=== PATIENT | male | born 1980 | race Caucasian/White ===

== ENCOUNTER → 2018-04-21 11:28 | Outpatient (CLI) | payer BC, SELFPAY ==
[2018-04-21 13:25] LABS: Abs Immature Grans 0.01 k/cumm (0.0-0.09); Absolute Basophil Count 0.02 k/cumm (0.0-0.2); Absolute Eosinophil Count 0.38 k/cumm (0.0-0.7); Absolute Lymphocyte Count 1.66 k/cumm (1.2-3.4); Absolute Monocyte Count 0.65 k/cumm (0.11-0.7); Absolute Neutrophil Count 3.64 k/cumm (1.2-6.7); Basophils % 0.3; HGB 17.3 g/dL (13.5-17.5); Immature Grans % 0.2; Lymphocytes % 26.1; Mean Corp. HGB Concentration 34.6 g/dL (32.0-36.0); Mean Corpuscular Hemoglobin 30.8 pg (27.0-33.0); Mean Platelet Volume 9.8 fL (8.0-11.0); Monocytes % 10.2; Neutrophils % 57.2; Platelet Count 325 x1000/uL (130-400); RBC 5.62 m/cumm (4.50-6.00); RBC Distribution Width 12.7 % (11.8-14.1); White Blood Cell Count 6.36 k/cumm (4.4-10.8)
[2018-04-21 13:34] LABS: ALT 48 U/L (12-78); AST 27 U/L (15-37); Albumin 4.3 g/dL (3.4-5.0); Alkaline Phosphatase 80 U/L (46-116); Anion Gap 8.1 mmol/L (3-11); BUN 16 mg/dL (7-18); Bilirubin, Total 0.8 mg/dL (0.2-1.0); CO2 27.9 mmol/L (21.0-32.0); CREATININE 1.04 mg/dL (0.70-1.30); Calcium 9.5 mg/dL (8.5-10.1); Chloride 103 mmol/L (98-107); Cholesterol 192 mg/dL (50-200); Glucose 93 mg/dL (70-100); HDL Cholesterol 45 mg/dL (40-60); LDL CHOLESTEROL 128 mg/dL (<100); Potassium 4.7 mmol/L (3.5-5.1); Sodium 139 mmol/L (136-145); Total Protein 7.5 g/dL (6.4-8.2); Triglyceride 146 mg/dL (30-150)
[2018-04-21 14:30] LABS: ESR 3 MM/HR (0-15)
[2018-04-21 21:07] LABS: CRP, High Sensitivity 0.75 mg/L
== END ==
PROVIDERS: Visit Provider Nurse Practitioner Family
DX: E78.5 Hyperlipidemia, unspecified (principal); H34.231 Retinal artery branch occlusion, right eye
CPT/HCPCS: 36415; 80053; 80061; 83721; 85652; 86141; 85025; 85610; 85730

== ENCOUNTER → 2018-04-27 01:01 | Outpatient (CLI) | payer BC, SELFPAY ==
--- NOTE | 2018-04-27 14:18 | DI.REPORT_ITS ---
SYMPTOM/DIAGNOSIS: BRANCH RETINAL ARTERY OCCLUSION, RT EYE h 34.231 BILATERAL DUPLEX CAROTID ULTRASOUND: 04/27 Duplex evaluation of the carotid circulation was performed according to the usual protocol. There is little if any visible atheromatous plaque in the carotid circulation. There is bilateral antegrade vertebral flow. There is flow velocity elevation in proximal right internal carotid artery consistent with 50-60% luminal diameter stenosis. No other significant flow velocity elevation seen. CONCLUSION: Findings consistent with 50-60% luminal diameter stenosis, proximal right internal carotid artery. I would note that on color Doppler evaluation, I did not see a significant obstruction to ICA flow at this site.
== END ==
PROVIDERS: Visit Provider Nurse Practitioner Family
DX: H34.231 Retinal artery branch occlusion, right eye (principal); I65.21 Occlusion and stenosis of right carotid artery
CPT/HCPCS: 93880

== ENCOUNTER → 2018-04-29 03:12 | Outpatient (CLI) | payer BC, SELFPAY ==
--- NOTE | 2018-04-29 13:03 | DI.REPORT_ITS ---
SYMPTOMS/DIAGNOSIS: BRANCH RETINAL ARTERY OCCLUSION OF RIGHT EYE, R34.231 MRI OF THE BRAIN: There are no prior comparison exams. T2 sagittal, T1, T2, FLAIR, diffusion and gradient-echo axial and post gadolinium T1 axial and coronal sequences were performed. No intracranial hemorrhage, mass or infarct is seen. There are no abnormal high signal lesions in the white matter. The ventricles are normal in size. The vascular flow voids appear intact. There are no abnormal areas of enhancement. There is mild mucosal thickening of the sinuses. The mastoid air cells appear clear. The orbits are unremarkable. IMPRESSION: Mild sinus disease, otherwise negative. MRA OF THE [place]: A 3D [id number] study was performed. There is no evidence of occlusion, significant stenosis or dissection. There is no vascular irregularity or evidence of an aneurysm. IMPRESSION: Negative MRA of the [place].
[2018-04-29] MEDS: Gadoterate meglumine 20 ML VIAL 16 ML IVP (14:00)
== END ==
PROVIDERS: Visit Provider Nurse Practitioner Family
DX: H34.231 Retinal artery branch occlusion, right eye (principal); J32.9 Chronic sinusitis, unspecified
CPT/HCPCS: 70544; 70553

== ENCOUNTER 2018-09-09 12:08 | Outpatient (REF) | payer BC, SELFPAY ==
[2018-09-13 14:00] LABS: Chlamydia Result Negative; GC Result Negative; Specimen Description URINE
== END 2018-09-09 12:28 ==
LOC: LBN 12:08
PROVIDERS: Visit Provider Family Medicine
DX: Z02.0 Encounter for examination for admission to educational institution (principal)
CPT/HCPCS: 87491; 87591

== ENCOUNTER 2020-06-11 04:25 | Outpatient (CLI) | payer BC, SELFPAY ==
[2020-06-11 10:35] LABS: Hemoglobin A1C 5.2 % (<5.7)
[2020-06-11 11:14] LABS: ALT 67 U/L (16-63); AST 30 U/L (15-37); Albumin 4.3 g/dL (3.4-5.0); Alkaline Phosphatase 67 U/L (46-116); Anion Gap 5.2 mmol/L (3-11); BUN 19 mg/dL (7-18); Bilirubin, Total 0.7 mg/dL (0.2-1.0); CO2 29.8 mmol/L (21.0-32.0); CREATININE 1.04 mg/dL (0.70-1.30); Calcium 9.4 mg/dL (8.5-10.1); Calculated LDL 92 mg/dL (<100); Chloride 103 mmol/L (98-107); Cholesterol 145 mg/dL (<200); Glucose 89 mg/dL (74-106); HDL Cholesterol 37 mg/dL (40-60); Sodium 138 mmol/L (136-145); Total Protein 7.4 g/dL (6.4-8.2); Triglyceride 81 mg/dL (<150)
== END 2020-06-11 04:45 ==
PROVIDERS: PCP Nurse Practitioner Family; Visit Provider Nurse Practitioner Family
DX: E78.5 Hyperlipidemia, unspecified (principal)
CPT/HCPCS: 36415; 80053; 80061; 83036

== ENCOUNTER 2020-11-15 15:58 | Outpatient (REF) | payer BC, SELFPAY ==
[2020-11-15 20:04] LABS: Bilirubin Negative (Negative); Blood Negative (Negative); Clarity Clear (Clear); Glucose Negative (Negative); Ketones Negative (Negative); Leukocyte Esterase Negative (Negative); Nitrite Negative (Negative); Specific Gravity 1.025 (1.005-1.025); Urobilinogen 0.2 EU/dL (Up TO 0.2); pH 7.5 (5-8)
== END 2020-11-15 15:59 | disposition home or self-care (01) ==
LOC: LBN 15:58
PROVIDERS: PCP Nurse Practitioner Family; Visit Provider Nurse Practitioner Family
DX: M54.89 Other dorsalgia (principal)
CPT/HCPCS: 81003

== ENCOUNTER 2020-11-26 01:13 | Outpatient (CLI) | payer BC, SELFPAY ==
--- NOTE | 2020-11-26 06:30 | DI.US_ITS ---
EXAM: US ABDOMEN RENAL CLINICAL HISTORY: Left sided mid back pain with radiation to LUQ,gb pain and disease,K82.9 TECHNIQUE: Ultrasound performed using standard protocol. COMPARISON: US CAROTID ULTRASOUND from 04/27/2018 FINDINGS: Renal ultrasound was performed according to the usual protocol. The kidneys are normal in size and s hape. There is no evidence of hydronephrosis or nephrolithiasis. Urinary bladder is nearly empty and is difficult to evaluate. No gross abnormality seen. Ureteral j ets are noted bilaterally. Pre and postvoid urinary bladder volume 24 cc and 0 cc respectively. IMPRESSION: Negative renal ultrasound. DATA REPOSITORY:
== END 2020-11-26 01:33 ==
PROVIDERS: PCP Nurse Practitioner Family; Visit Provider Nurse Practitioner Family
DX: R10.12 Left upper quadrant pain (principal); K82.8 Other specified diseases of gallbladder; M54.9 Dorsalgia, unspecified
CPT/HCPCS: 76770; 76700

== ENCOUNTER 2020-11-28 02:57 | Outpatient (CLI) | payer BC, SELFPAY ==
[2020-11-28 09:55] LABS: HCT 49.9 % (40.0-50.0); HGB 16.9 g/dL (13.5-17.5); MCH 29.4 pg (27.0-33.0); MCHC 33.9 % (32.0-36.0); MCV 86.9 fL (80-95); MPV 9.6 fL (8.0-11.0); Platelet Count 291 10^3/uL (130-400); RBC 5.74 10^6/uL (4.36-5.78); RDW 12.3 % (11.8-14.1); RDW-SD 39.1 fL; WBC 5.44 10^3/uL (4.4-10.8)
[2020-11-28 10:25] LABS: ALT 109 U/L (16-63); AST 74 U/L (15-37); Albumin 4.4 g/dL (3.4-5.0); Alkaline Phosphatase 69 U/L (46-116); BUN 14 mg/dL (7-18); Bilirubin, Total 0.7 mg/dL (0.2-1.0); Calcium 9.5 mg/dL (8.5-10.1); Chloride 104 mmol/L (98-107); Glucose 105 mg/dL (74-106); Potassium 4.6 mmol/L (3.5-5.1); Sodium 141 mmol/L (136-145); Total Protein 7.7 g/dL (6.4-8.2)
== END 2020-11-28 02:58 | disposition home or self-care (01) ==
PROVIDERS: PCP Nurse Practitioner Family; Visit Provider Nurse Practitioner Family
DX: M54.89 Other dorsalgia (principal)
CPT/HCPCS: 36415; 80053; 85027

== ENCOUNTER 2020-12-04 04:17 | Outpatient (CLI) | payer BC, SELFPAY ==
[2020-12-05 10:29] LABS: HBs Antibody, Qual Positive (See Note); HBs Antibody, Quant 163.8 mIU/mL (See Note); Hepatitis B Core Antibody Negative (Negative); Hepatitis B surface Ag Negative (Negative); Hepatitis C Ab w Rflx HCV PCR Negative (Negative)
== END 2020-12-04 04:18 | disposition home or self-care (01) ==
LOC: LBO 04:17
PROVIDERS: PCP Nurse Practitioner Family; Visit Provider Nurse Practitioner Family
DX: R79.89 Other specified abnormal findings of blood chemistry (principal); Z11.59 Encounter for screening for other viral diseases
CPT/HCPCS: 36415; 86704; 86706; 86803; 87340

== ENCOUNTER 2020-12-11 02:36 | Outpatient (CLI) | payer BC, SELFPAY ==
[2020-12-11 10:32] LABS: Source Nasal/Nares
[2020-12-11 14:53] LABS: COVID-19 PCR Negative (Negative)
== END 2020-12-11 02:37 | disposition home or self-care (01) ==
PROVIDERS: PCP Nurse Practitioner Family; Visit Provider Ophthalmology
DX: Z20.822 Contact with and (suspected) exposure to COVID-19 (principal); Z01.818 Encounter for other preprocedural examination
CPT/HCPCS: 87635

== ENCOUNTER 2020-12-19 19:22 | Emergency (ER) | payer BC, SELFPAY ==
[2020-12-19] VITALS (8 sets, daily range): BP systolic 116–125; BP diastolic 71–79; PULSE 72–90; RESP 16; TEMP 36.6; O2SAT 86–97
--- NOTE | 2020-12-19 19:41 | ED.GENADUL_ITS ---
Discharge Plan Disposition Patient Disposition: HOME Condition: Improving Discharge Details Clinical Impression: Post-operative pain Primary Care Provider: Yuli Mcrae ED Provider: Milton Muller Home Meds and New Rx's Prescriptions: New hydromorphone [Dilaudid] 2 mg tablet 2 mg PO Q6H PRN (Reason: pain) Qty: 7 RF: 0 Continued atorvastatin 40 mg tablet 40 mg PO DAILY Qty: 90 RF: 4 ondansetron HCl 4 mg tablet 4 mg PO PRN PRNRF: 0 Discontinued oxycodone 5 mg tablet 5 mg PO PRN PRNRF: 0 Discharge Instructions Additional Instructions: Please call your ophthalmic surgeon tomorrow to let them know you have had increased postoperative pain. May use the provided hydromorphone/Dilaudid as instructed, as needed for severe/breakthrough pain. Continue all other prescribed medications. Return to the ER for any acute concerns. Medical Decision Making 40-year-old male who had left eye ptrygium surgery yesterday in [place]. Had a postop check this morning which was reassuring. He reports he was provided oxycodone for anticipated postoperative pain. He developed nausea after taking 1 tablet and since has not been taking any analgesia. Presents for a left face pain that is constant. He has had no change to vision. The left eye is injected, but otherwise without evidence of asymmetry, no bleeding, no significant swelling. Patient has had intolerance of some narcotic analgesics in the past. Consistent with postoperative pain. Patient IV access established, given parenteral analgesia and antiemetic. Patient's pain improved considerably. No further nausea. We will have him stop the oxycodone. I did consent him for the use of a small number of hydromorphone for home. He is stable and improving. He will follow-up with his ophthalmic surgeon for recheck. HPI General Mode of arrival: ambulatory . Date/Time Provider Initiated Documentation: 12/19/20 19:23 . Limitations to Documentation: no limitations . Information obtained by: patient . History of Present Illness 40 year old M presents to the emergency department with the chief complaint of Left pain after eye surgery yesterday, described as moderate, Quality is described as dull, and is localized to the head, face, eyes and left. Patient reports no radiation. Patient started experiencing this hour(s) and it has been constant. No relieving factors improve symptom(s), No exacerbating factors reported . Patient notes denies fever/chills, loss of appetite and nausea/vomiting. Patient did receive the following treatments prior to arrival, other (Oxycodone x1 which produced nausea.) Related Data Home Medications Medication Instructions Recorded Confirmed atorvastatin 40 mg tablet 40 mg PO DAILY #90 tab-cap 09/11/20 12/19/20 hydromorphone [Dilaudid] 2 mg PO Q6H PRN #7 tab 12/19/20 ondansetron HCl 4 mg PO PRN PRN 12/19/20 12/19/20 Previous Rx's Medication Instructions Recorded atorvastatin 40 mg tablet 40 mg PO DAILY #90 tab-cap 09/11/20 hydromorphone [Dilaudid] 2 mg PO Q6H PRN #7 tab 12/19/20 Allergies Allergy/AdvReac Type Severity Reaction Status Date / Time No Known Allergies Allergy Unverified 12/19/20 19:32 General Stated Complaint: EyeProblem JUAQUIN: 4 Review of Systems Narrative: No fever, chills, no vomiting. No fall or injury. 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 Paternal Grandfather No problems noted. Paternal Grandmother Myocardial infarction Heart disease Social History Smoking/Tobacco Use Status: Never Smoking risk assessment performed?: Yes Alcohol Intake: former Drug use: Never Substance use type: does not use Exam Narrative Exam Narrative: GEN: awake, alert, oriented 3. Pleasant, well groomed, interactive. HEAD: Normocephalic, atraumatic ENT: Mucous membranes moist, oropharynx unremarkable, External ear exam unremarkable EYES: PERRL, EOMI, left eye conjunctiva is injected NECK: Full ROM, no FLORIDALMA, no menigismus CHEST/RESP: No respiratory distress EXT: Full ROM, normal muscular tone Neuro: Grossly normal neurologic exam, conversant, interactive. Psych: Speech fluent, thoughts congruent, affect normal Course Vital Signs Vital signs: Vital Signs Temperature 36.6 C 12/19/20 19:27 Pulse 90 12/19/20 19:27 Respiratory Rate 16 12/19/20 19:27 Blood Pressure 123/71 12/19/20 19:27 Pulse Oximetry 97 12/19/20 19:27 Temperature 36.6 C 12/19/20 19:27 Temperature Source Tympanic 12/19/20 19:27 Pulse 90 12/19/20 19:27 Respiratory Rate 16 12/19/20 19:27 Respiratory Effort Non-Labored 12/19/20 19:27 Blood Pressure 123/71 12/19/20 19:27 Blood Pressure Position Sitting 12/19/20 19:27 Pulse Oximetry 97 12/19/20 19:27 Oxygen Delivery Method Room Air 12/19/20 19:27 Oxygen Flow Rate 0 12/19/20 19:27 Pain Level 9 12/19/20 19:27
[2020-12-19] MEDS: Ondansetron 4 MG/2 ML VIAL IVP (19:46)
[2020-12-19] MEDS: HYDROmorphone 2 MG/ML VIAL 1 MG IVP (19:46)
[2020-12-19] MEDS: HYDROmorphone 2 MG TAB 6 MG PO (20:29)
== END 2020-12-19 20:27 | disposition home or self-care (01) ==
PROVIDERS: Emergency Provider Emergency Medicine; PCP Nurse Practitioner Family
DX: G89.18 Other acute postprocedural pain (principal); H57.12 Ocular pain, left eye
CPT/HCPCS: 96374; 96375; 99284; 99283; J2405

== ENCOUNTER 2022-03-15 13:30 | Emergency (ER) | payer BC, SELFPAY ==
[2022-03-15] VITALS (42 sets, daily range): BP systolic 120–156; BP diastolic 71–92; PULSE 75–126; RESP 8–24; O2SAT 94–100
--- NOTE | 2022-03-15 13:30 | RT.EKG_ITS ---
APPROVED REPORT Exam: Resting ECG Reason for Exam: tachycardia Patient Location: E HR:107 bpm ECG Measurements Heart Rate 107 AXIS MD 142 P 27 QRSd 76 QRS 30 QT 326 T 30 QTc 436 Conclusion Sinus tachycardia. Nonspecific st changes
--- NOTE | 2022-03-15 14:00 | DI.RAD_ITS ---
Exam(s) XR PORTABLE CHEST AP EXAM: XR PORTABLE CHEST AP CLINICAL HISTORY: Palpitations. TECHNIQUE: 2D digital imaging was performed. COMPARISON: CR,RF BARIUM SWALLOW W PA LAT CXR from 05/22/2011 FINDINGS: Single AP portable view. Heart size is upper normal. The mediastinum is not widened. Lungs are clear. No infiltrates nor obvious pleural effusions. Two calcified granulomas in the right lower lobe are unchanged from 2011. Calcified lymph nodes in the right hilum noted. IMPRESSION: No acute pulmonary findings on this single AP portable view of the chest. Two calcified granulomas in the right lower lobe are again noted. DATA REPOSITORY: RADIATION DOSE DELIVERED: All CT scans at this facility use at least one of these dose optimization techniques: automated exposure control; mA and/or kV adjustment per patient size (includes targeted e xams where dose is matched to clinical indication); or iterative reconstruction.
--- NOTE | 2022-03-15 14:06 | ED.GENADUL_ITS ---
Discharge Plan Disposition Patient Disposition: HOME Condition: Improving Discharge Details Clinical Impression: Palpitations Primary Care Provider: Yuli Mcrae ED Provider: Milton Muller Home Meds and New Rx's Prescriptions: Continued atorvastatin 40 mg tablet 40 mg PO DAILY Qty: 90 4RF Rx Instructions: Take 1 tablet by mouth daily Discharge Instructions Instructions: Heart Palpitations (ED) Additional Instructions: Your work-up today included blood work, chest x-ray and EKG. An outpatient Holter monitor has been ordered for you. Please follow-up with respiratory therapy in the office to complete this. Typically they will call you with an appointment time Home to rest today. Small, frequent sips of fluid to maintain hydration. Return to the emergency department for any acute concerns Referrals: Yuli Mcrae, INSURANCE RISK ANALYST [Primary Care Provider] - Discharge Orders Other Ambulatory Orders: Holter Monitor (Routine) Timeframe: 1 Week Facility: [facility] - Location: Respiratory Therapy Ordered By: Milton Muller Medical Decision Making 41-year-old male presents from home with complaint of palpitations feeling lightheaded and weak since yesterday. He does not have chest pain. He noted pulses to 130 on his smart watch. He arrives ER afebrile and interactive, with resting pulse of approximately 105. Differential diagnosis includes dehydration, thyroid disease, electrolyte abnormality. Must exclude underlying cardiac ischemia or PE. Patient IV access established, screening labs obtained, he is given fluid bolus and referred for EKG and chest x-ray. Laboratories note a reassuring CBC and chemistries. Troponin is negative x2, TSH within normal limits and D-dimer negative at 345. Chest x-ray without acute findings. Following 2. Liters of fluid patient's pulse corrected to mid to high 80s. He is observed in a teletypesetter monitor for 3 and half hours without evidence of significant arrhythmia. I do feel he would benefit from outpatient teletypesetter monitor which I will order. Lab Data Lab results reviewed: Yes I reviewed the patient's lab results. Labs: Laboratory Results - last 24 hr 03/15/22 03/15/22 03/15/22 14:10 14:10 14:10 WBC 6.62 RBC 5.17 Hgb 15.4 Hct 44.4 MCV 86 MCH 29.8 MCHC 34.7 RDW 12.0 Plt Count 295 MPV 9.1 Immature Gran % 0.2 Neutrophils % 66.4 Lymphocytes % 19.9 Monocytes % 10.6 Eosinophils % 2.4 Basophils % 0.5 Nucleated RBC % 0.0 Absolute Neutrophils 4.40 Absolute Lymphocytes 1.32 Absolute Monocytes 0.70 Absolute Eosinophils 0.16 Absolute Basophils 0.03 D-Dimer 345 Sodium 137 Potassium 3.4 L Chloride 101 Carbon Dioxide 24.1 Anion Gap 11.9 H BUN 13 Creatinine 1.0 Estimated GFR/1.73 m2 >= 60.00 Glucose 136 H Calcium 9.2 Magnesium 1.6 L Total Bilirubin 0.6 AST 23 ALT 47 Alkaline Phosphatase 76 Troponin I < 50 Total Protein 7.4 Albumin 4.0 TSH 1.53 Urine Color Urine Clarity Urine pH Ur Specific [place] Urine Protein Urine Ketones Urine Blood Urine Nitrite Urine Bilirubin Urine Urobilinogen Ur Leukocyte Esterase Urine Glucose Urine Opiates Screen Urine Methadone Screen Ur Barbiturates Screen Ur Tricyclics Screen Ur Amphetamines Screen U Benzodiazepines Scrn Urine Cocaine Screen Ur THC Screen 03/15/22 03/15/22 03/15/22 15:10 15:10 17:22 WBC RBC Hgb Hct MCV MCH MCHC RDW Plt Count MPV Immature Gran % Neutrophils % Lymphocytes % Monocytes % Eosinophils % Basophils % Nucleated RBC % Absolute Neutrophils Absolute Lymphocytes Absolute Monocytes Absolute Eosinophils Absolute Basophils D-Dimer Sodium Potassium Chloride Carbon Dioxide Anion Gap BUN Creatinine Estimated GFR/1.73 m2 Glucose Calcium Magnesium Total Bilirubin AST ALT Alkaline Phosphatase Troponin I < 50 Total Protein Albumin TSH Urine Color Yellow Urine Clarity Clear Urine pH 6.0 Ur Specific [place] 1.015 Urine Protein Negative Urine Ketones Negative Urine Blood Negative Urine Nitrite Negative Urine Bilirubin Negative Urine Urobilinogen 0.2 Ur Leukocyte Esterase Negative Urine Glucose Negative Urine Opiates Screen Negative Urine Methadone Screen Negative Ur Barbiturates Screen Negative Ur Tricyclics Screen Negative Ur Amphetamines Screen Negative U Benzodiazepines Scrn Negative Urine Cocaine Screen Negative Ur THC Screen Negative HPI General Mode of arrival: ambulatory . Date/Time Provider Initiated Documentation: 03/15/22 13:36 . Limitations to Documentation: no limitations . Information obtained by: patient . History of Present Illness 41 year old M presents to the emergency department with the chief complaint of Palpitations, feeling weak, described as moderate, Quality is described as dull, and is localized to the chest. Patient reports no radiation. Patient started experiencing this hour(s) and it has been constant. No relieving factors improve symptom(s), No exacerbating factors reported . Patient notes weakness; denies chest pain, shortness of breath and syncope. Patient did receive the following treatments prior to arrival, none Related Data Home Medications Medication Instructions Recorded Confirmed atorvastatin 40 mg tablet 40 mg PO DAILY #90 tab-caps 07/25/21 03/15/22 Previous Rx's Medication Instructions Recorded atorvastatin 40 mg tablet 40 mg PO DAILY #90 tab-caps 07/25/21 Allergies Allergy/AdvReac Type Severity Reaction Status Date / Time No Known Allergies Allergy Unverified 07/25/21 08:00 General Stated Complaint: Chest Pain JUAQUIN: 2 Review of Systems Narrative: Denies chest pain or syncope 6 systems reviewed and otherwise negative PFSH All Active Problems (Updated 03/15/22 @ 18:03 by Milton Muller MD) Palpitations (Acute) Palpitations (Acute) Hyperlipidemia (Chronic) 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 Paternal Grandfather No problems noted. Paternal Grandmother Myocardial infarction Heart disease Social History Smoking/Tobacco Use Status: Never Second Hand Exposure: No Smoking risk assessment performed?: Yes Alcohol Intake: current Alcohol Intake frequency: a few times a month Alcohol type: beer Drug use: Never Substance use type: does not use Do you feel safe at home: Yes Do you feel safe in your relationship?: Yes Exam Narrative Exam Narrative: GEN: awake, alert, oriented 3. Pleasant, well groomed, interactive. HEAD: Normocephalic, atraumatic ENT: Mucous membranes moist, oropharynx unremarkable, External ear exam unremarkable EYES: PERRL, EOMI NECK: Full ROM, no FLORIDALMA, no menigismus CHEST/RESP: Nontender, clear to auscultation bilateral, no wheeze/rhonchi/rales CARDIOVASCULAR: Regular and tachycardic, no murmur, rub abad. 2+ Rad pulse bilateral ABDOMEN: Soft, nontender, no mass. +Bowel sounds EXT: Full ROM, no edema, no rash Neuro: Grossly normal neurologic exam, conversant, interactive. Psych: Speech fluent, thoughts congruent, affect normal Course Vital Signs Vital signs: Vital Signs Pulse 105 H 03/15/22 13:46 Respiratory Rate 18 03/15/22 13:46 Pulse Oximetry 99 03/15/22 13:46 Pulse 105 H 03/15/22 13:46 Respiratory Rate 18 03/15/22 14:02 Respiratory Effort Non-Labored 03/15/22 14:02 Respiratory Depth Normal 03/15/22 14:02 Respiratory Pattern Normal 03/15/22 14:02 Pulse Oximetry 99 03/15/22 13:46 Oxygen Delivery Method Room Air 03/15/22 13:46 Oxygen Flow Rate 0 03/15/22 13:46 Pain Level 4 03/15/22 13:46
[2022-03-15] MEDS: Normal Saline 1,000 ML 2000 ML IV (14:14)
[2022-03-15 14:18] LABS: Abs Immature Grans 0.01 10^3/uL (0.0-0.06); Absolute Basophil Count 0.03 10^3/uL (0.0-0.2); Absolute Eosinophil Count 0.16 10^3/uL (0.0-0.7); Absolute Lymphocyte Count 1.32 10^3/uL (1.2-3.4); Basophils % 0.5; Eosinophils % 2.4; HCT 44.4 % (40.0-50.0); HGB 15.4 g/dL (13.5-17.5); Immature Grans % 0.2; Lymphocytes % 19.9; MCH 29.8 pg (27.0-33.0); MCHC 34.7 % (32.0-36.0); MCV 86 fL (80-95); MPV 9.1 fL (8.0-11.0); Monocytes % 10.6; Neutrophils % 66.4; Platelet Count 295 10^3/uL (130-400); RBC 5.17 10^6/uL (4.36-5.78); RDW-SD 37.7 fL; WBC 6.62 10^3/uL (4.4-10.8)
[2022-03-15 14:41] LABS: ALT 47 U/L (16-63); AST 23 U/L (15-37); Alkaline Phosphatase 76 U/L (46-116); Anion Gap 11.9 mmol/L (3-11); BUN 13 mg/dL (7-18); Bilirubin, Total 0.6 mg/dL (0.2-1.0); CO2 24.1 mmol/L (21.0-32.0); Calcium 9.2 mg/dL (8.5-10.1); Chloride 101 mmol/L (98-107); Glucose 136 mg/dL (74-106); Magnesium 1.6 mg/dL (1.8-2.4); Potassium 3.4 mmol/L (3.5-5.1); Sodium 137 mmol/L (136-145); TSH 1.53 uIU/mL (0.36-3.74); Total Protein 7.4 g/dL (6.4-8.2); Troponin I < 50 ng/L (<or=60)
[2022-03-15 14:47] LABS: D-Dimer 345 ng/mlFEU (<500)
[2022-03-15 15:22] LABS: Bilirubin Negative (Negative); Blood Negative (Negative); Clarity Clear (Clear); Glucose Negative (Negative); Ketones Negative (Negative); Leukocyte Esterase Negative (Negative); Nitrite Negative (Negative); Specific Gravity 1.015 (1.005-1.025); Urobilinogen 0.2 EU/dL (Up TO 0.2)
[2022-03-15] MEDS: MAGNESIUM SULFATE 2 GM/50 ML BAG IVPB (15:25)
[2022-03-15 15:33] LABS: *AMPHETAMINES SCREEN URINE Negative (Negative); *BARBITURATES SCREEN URINE Negative (Negative); *BENZODIAZEPINES SCREEN URINE Negative (Negative); Cannabinoids THC Negative (Negative); Cocaine Screen,Urine Negative (Negative); METHADONE URINE SCREEN Negative (Negative); OPIATES URINE SCREEN Negative (Negative)
[2022-03-15 15:35] LABS: Tricyclic Antidepressants Negative (Negative)
--- NOTE | 2022-03-15 16:51 | DI.VRAD_ITS ---
PROCEDURE INFORMATION: Exam: XR Chest Exam date and time: 03/15/2022 4:24 PM Age: 41 years old Clinical indication: Other: Palpitations TECHNIQUE: Imaging protocol: Radiologic exam of the chest. Views: 1 view. COMPARISON: CT ABD PELVIS WITH CONTRAST 05/26/2017 9:01 AM FINDINGS: Lungs: Clear lungs. Pleural spaces: No sizable pleural effusion. No pneumothorax. Heart/Mediastinum: Cardiomediastinal silhouette is within normal limits. Bones/joints: No acute displaced fracture or dislocation. IMPRESSION: No acute cardiopulmonary process. Dictated and Authenticated by: Yash Pedro MD. Ordering:LOLIS Rose MD
[2022-03-15 17:46] LABS: Troponin I < 50 ng/L (<or=60)
--- NOTE | 2022-03-16 00:15 | NUR.NOTE ---
Order for a holter monitor placed in computer. Nursing Note:
== END 2022-03-15 18:24 | disposition home or self-care (01) ==
PROVIDERS: Emergency Provider Emergency Medicine; PCP Nurse Practitioner Family
DX: R00.2 Palpitations (principal)
CPT/HCPCS: 80053; 80307; 93005; 96361; 96365; 96366; 99284; 71045; 81003; 83735; 84443; 84484; 85025; 85379; 93010

== ENCOUNTER 2022-03-19 09:24 | Outpatient (RCR) | payer BC, SELFPAY ==
--- OUTSIDE RECORDS SUMMARY | 2022-03-19 09:26 | XMS_ITS | Encounter Summary ---
:1980 Author Organization [facility] Address [address] [place] [address] Care Team Providers Name Role Phone Unavailable Primary Care Provider Unavailable Encounter Details Date Type Department Care Team Description 12/12/2013 Results Only [facility] Adalberto Dawson MD [phone] [place] [phone] (Wo rk) Social History Tobacco Use Types Packs/Day Years Used Date Never Assessed Sex Assigned at Date Recorded Not on file documented as of this encounter Plan of Treatment Not on filedocumented as of this encounter Procedures Procedure Name Priority Date/Time Associated Diagnosis Comme [facility] SURGICAL PATHOLOGY Routine 12/12/2013 15:38 Resul ts for this EDT procedure are i n the results section. documented in this encounter Results SURGICAL PATHOLOGY (12/12/2013 15:38 EDT) Pathology Report: SURGICAL PATHOLOGY REPORT JOHNNA HENDRICKS Reports generated via electronic interface contain yana ginal data; LAB however they are lacking the format of the original re port. Caution should be taken when reading/interpreting unfo rmatted reports. Name: ? MERT PRADO ? Accession #: ? [id number] ? : ? 1980 (Age: 33) ??M ? Collect Date: ? 12/12/2013 ? Location: ? [facility] ? Receive Date: ? 12/14/19 14 ? Provider: KAIDEN DAWSON MD Copy to: ? Final Pathologic Diagnosis: A. SMALL BOWEL, SECOND PORTION OF DUODENUM, BIOPSY: - ??Reactive duodenal mucosa with no significant alter ation. B. STOMACH, ANTRUM, BIOPSY: - ??Antral mucosa with active gastropathy. - ??Negative for Helicobacter pylori on H&E. - ??Separate fragment of duodenal mucosa with peptic d uodenitis. C. ESOPHAGOGASTRIC JUNCTION, BIOPSY: - ??Cardio-oxyntic mucosa with inflammation and reacti ve change. - ??No intestinal metaplasia or dysplasia identified. - ??Adjoining squamous mucos a with up to 10 eosinophils per high power field. ?? D. ESOPHAGUS, MID, BIOPSY: - ??Reactive squamous mucosa with up to 12 eosinophils per high power field. ??See comment. Comment: Features of esophagus are compatible with eosinophilic esophagitis in right clinical setting. Correlation recommended. Document reviewed and electronically signed by: BHARATI BRITTON MD Report ??Date: 12/15/2013 15:46 By the signature above, the attending physician certif ies that he/she has personally conducted a gross and/or microscopic examin ation of the described specimens and rendered or confirmed the above diagnosi s. Specimen(s) Received: A. ??2nd portion bx B. ??Antrum bx C. ??EGJ bx D. ??Mid esophageal bx Clinical History: R/O celiac, H. pylori, Nino's, eosino philic esophagitis; clinical diagnosis code: ??787.20 Gross Description: A. ?Received in formalin labelled with proper p atient identification (initials C, M) and 2nd portion bx are two pink-vences tissues (0.2 x 0.1 x 0.1 cm and 0.5 x 0.1 x 0.1 cm). Entirely submitted in A1. B. ?Received in formalin labelled with proper p atient identification (initials C, M) and antrum bx are two pink-vences tissues (0.2 x 0.2 x 0.1 cm and 0.3 x 0.2 x 0.1 cm). Entirely submitted in B1. C. ?Received in formalin labelled with proper p atient identification (initials C, M) and EGJ bx are two pink-vences tissues (each 0.2 x 0.2 x 0.1 cm). Entirely submitted in C1. D. ?Received in formalin labelled with proper p atient identification (initials C, M) and mid esophageal bx are two vences-white tissues (0.1 x 0.1 x 0.1 cm and 0.6 x 0.2 x 0.1 cm). Entirely submitted in D1. Lynda Navarrete 12/13/2013 04:47 PM End of Report Specimen Performing Organization Address City/State/ZIP Code Phon e Number [facility] [address] [place] [address] SERVICES [facility] [address] [place] [address] documented in this encounter Visit Diagnoses Not on filedocumented in this encounter
--- OUTSIDE RECORDS SUMMARY | 2022-03-19 09:26 | XMS_ITS | Encounter Summary ---
:[address] [facility] Address [address] [place] [address] Care Team Providers Name Role Phone Unavailable Primary Care Provider Unavailable Encounter Details Date Type Department Care Team Description 12/12/2013 Hospital Encounter [facility] [place] Unknown, Provider, [facility] [address] [facility] [phone] [place] [address] (Work) [phone] Social History Tobacco Use Types Packs/Day Years Used Date Never Assessed Sex Assigned at Date Recorded Not on file documented as of this encounter Discharge Disposition Disposition Code Departure Means Destination Home or Self Intermediate documented in this encounter Plan of Treatment Not on filedocumented as of this encounter Visit Diagnoses Not on filedocumented in this encounter
--- OUTSIDE RECORDS SUMMARY | 2022-03-19 09:26 | XMS_ITS | Encounter Summary ---
:1980 Author Organization [facility] Address [address] [place] [address] Care Team Providers Name Role Phone Reilly Madrigal MD Primary Care Provider [phone] Unknown, Provider Primary Care Provider Encounter Details Date Type Department Care Team Description 01/27/2002 Hospital Encounter [facility]- Aleta Zuniga APRN [facility] [address] [phone] (Wo rk) Social History Tobacco Use Types Packs/Day Years Used Date Never Assessed Sex Assigned at Date Recorded Not on file documented as of this encounter Plan of Treatment Not on filedocumented as of this encounter Procedures Procedure Name Priority Date/Time Associated Comments Diagnosis NEISSERIA GONORRHOEAE Routine 01/27/2002 12:30 Re sults for this URIPROBE EDT procedure are i n the results section. CHLAMYDIA TRACHOMATIS Routine 01/27/2002 12:30 Re sults for this URIPROBE EDT procedure are i n the results section. HIV 1/2 ANTIGEN AND Routine 01/27/2002 12:07 Resu lts for this ANTIBODY, 4TH EDT procedure are in GENERATION the results section. HEPATIC FUNCTION Routine 01/27/2002 12:07 Results for this PANEL (ALB,ALK EDT procedure are in PHOS,ALT,AST,DBIL,TOT the re sults EMA,TOT PROT) section. documented in this encounter Results NEISSERIA GONORRHOEAE URIPROBE (01/27/2002 12:30 EDT) Specimen Description Urine [facility] Gonorrhea Neg(Note) [facility] Specimen type submitted - UR INE ? LAB ? TEST PERFORMED BY Sima baker ? Attn:Lab ? [address] ? [place], [place] ??[address] ? Specimen Performing Organization Address City/State/ZIP Code Phon e Number [facility] [address] [place] [address] SERVICES [facility] [address] [place] [address] CHLAMYDIA TRACHOMATIS URIPROBE (01/27/2002 12:30 EDT) Specimen Description Urine [facility] Chlamydia Neg(Note) [facility] Specimen type submitted - UR INE ? LAB ? TEST PERFORMED BY Sima baker ? Attn:Lab ? [address] ? [place], [place] ??[address] ? Specimen Performing Organization Address [facility] Phon e Number [facility] [address] [place] [address] SERVICES [facility] [address] [place] [address] LIVER FUNCTION TESTS (01/27/2002 12:07 EDT) Pathologist Sig nature Albumin 4.5 3.0 - 5.5 g/dl [facility] Total Protein 7.3 6.0 - 8.5 g/dl [facility] Total Alkaline 57 38 - 126 U/L [facility] Phosphatase ALT 21 15 - 75 U/L [facility] AST 22 8 - 50 U/L [facility] Unconjugated Bilirubin 0.5 0.1 - 1.1 mg/dl [facility] Conjugated Bilirubin 0.0 0.0 - 0.3 mg/dl [facility] Bilirubin, Total 0.5 0.2 - 1.3 mg/dl [facility] Specimen Performing Organization Address [facility] Phon e Number [facility] [address] [place] [address] SERVICES [facility] [address] [place] [address] HIV ANTIBODY (ALE) (01/27/2002 12:07 EDT) Pathologist Sig nature HIV 1/2 Antibody NONREACT. NR [facility] Specimen Performing Organization Address [facility] Phon e Number [facility] [address] [place] [address] SERVICES [facility] [address] [place] [address] documented in this encounter Visit Diagnoses Not on filedocumented in this encounter Care Teams Wire Temperer Relationship Specialty Start Date End Date Reilly Madrigal MD PCP - General 12/18/13 09/08/[address] [place] [phone] Unknown, MD Sam PCP - General 09/09/18 documented as of this encounter
--- OUTSIDE RECORDS SUMMARY | 2022-03-19 09:26 | XMS_ITS | Encounter Summary ---
:1980 Author Organization [facility] Address [address] [place] [address] Care Team Providers Name Role Phone Unknown, Provider Primary Care Provider Encounter Details Date Type Department Care Team Description 12/04/2020 Lab Requisition [facility] Outr Resulting Lab, Pathology & Laboratory Provider [facility] [address] [place] [address] Social History Tobacco Use Types Packs/Day Years Used Date Never Assessed Sex Assigned at Date Recorded Not on file documented as of this encounter Plan of Treatment Not on filedocumented as of this encounter Procedures Procedure Name Priority Date/Time Associated Diagnosis Comme nts CHRONIC HEPATITIS Routine 12/04/2020 10:40 Result s for this PROFILE, UNKNOWN EDT procedure a re in TYPE the results section. documented in this encounter Results CHRONIC HEPATITIS PROFILE, UNKNOWN TYPE (12/04/2020 10:40 EDT) Hep B Surface Ag Negative Negative [facility] SERVICES Hep B Surface Ab, 163.8 See Note mIU/mL [facility] Quantitative Comment: [facility] Reference Range for Hep B Surface Ab, Quant: SERVICES Positive: >= 10.0 mIU/mL Negative: ??< 10.0 mIU/mL Patient is presumed to be immune to infection with Hep atitis B Virus. Hep B Surface Ab, Positive See Note [facility] Qualitative Comment: [facility] Reference Range for Hep B Surface Ab, Qual: SERVICES Unvaccinated: ??Negative Vaccinated: ??Positive Hepatitis B Core Negative Negative [facility] Ab, Total [facility] SERVICES Hep C Antibody Negative Negative [facility] Specimen Blood - Venous blood (substance) Performing Organization Address City/State/ZIP Code Phon e Number [facility] [address] [place] [address] SERVICES documented in this encounter Visit Diagnoses Not on filedocumented in this encounter Care Teams Relay Tester Helper Relationship Specialty Start Date End Date Unknown, Provider, PCP - General 09/09/18 documented as of this encounter
--- OUTSIDE RECORDS SUMMARY | 2022-03-19 09:26 | XMS_ITS | Encounter Summary ---
:[address] [facility] Address [address] [place] [address] Care Team Providers Name Role Phone Unknown, Provider Primary Care Provider Encounter Details Date Type Department Care Team Description 12/18/2020 Lab Requisition [facility] [place] for other Pathology & Qing Larsen general examination Laboratory Medicine [address] [phone] [place], [place] [address] Social History Tobacco Use Types Packs/Day Years Used Date Never Assessed Sex Assigned at Date Recorded Not on file documented as of this encounter Discharge Disposition Disposition Code Departure Means Destination Home or Self Retirement documented in this encounter Plan of Treatment Not on filedocumented as of this encounter Procedures Procedure Name Priority Date/Time Associated Diagnosis Comme nts SURGICAL PATHOLOGY Today 12/18/2020 16:05 Encounter for othe r Results for this EDT general examination procedur e are in the results section. documented in this encounter Results SURGICAL PATHOLOGY (12/18/2020 16:05 EDT) Final Diagnosis A. EYE, LEFT, NASAL ASPECT, EXCISION: [facility] - Pterygium. CENTER - Negative for high-grade dysplasia. LABO RATORY SERVICES Attestation There was significant [facility] Electr onically resident/fellow CENTER signed by Jean nuñez, involvement in the LABORATORY Seda Hidalgo MD on diagnostic evaluation SERVICES 12/21/19 21 at 0959 of this case. By the signature below, the attending physician certifies that they have personally conducted a gross and/or microscopic examination of the described specimens and rendered or confirmed the above diagnosis. Clinical History Pterygium left eye [facility] SERVICES Gross Description A. [facility] Received in formalin zac d with proper patient identification (initials C, M) and pterygium left eye is a 0.7 x 0.5 x 0.1 cm pink-white tissue. Centrally the tissue is slightly darker pink over an CENTER area measuring 0.2 cm in norma meter and surrounded by a bicycle racer pink tissue. Trisected and submitted entirely in A1. LABORATORY SERVICES KAYLIE HOLLY(ASCP) 12/18/2020 19:17 Resident/Fellow: Nestor Huerta, [facility] SERVICES Performing Lab [facility] SERVICES Scanned Images [facility] SERVICES Specimen Tissue - Specimen from eye (specimen) Performing Organization Address City/State/ZIP Code Phon e Number [facility] [address] [place] [address] SERVICES documented in this encounter Visit Diagnoses Diagnosis Encounter for other general examination documented in this encounter Care Teams Upholstery Tech Relationship Specialty Start Date End Date Unknown, Provider, PCP - General 09/09/18 documented as of this encounter
--- OUTSIDE RECORDS SUMMARY | 2022-03-19 09:26 | XMS_ITS | Encounter Summary ---
:1980 Author Organization [facility] Address [address] [place] [address] Care Team Providers Name Role Phone Unavailable Primary Care Provider Unavailable Encounter Details Date Type Department Care Team Description [facility]/23/2001 [facility] [address] [place] [address] CARE [phone] [place] [address] 452 (Wo rk) Social History Tobacco Use Types Packs/Day Years Used Date Never Assessed Sex Assigned at Date Recorded Not on file documented as of this encounter Discharge Disposition Disposition Code Departure Means Destination Auto Discharge documented in this encounter Plan of Treatment Not on filedocumented as of this encounter Procedures Procedure Name Priority Date/Time Associated Diagnosis Comme nts TIBIA FIBULA 2 Routine 06/23/2001 9:22 EDT Result s for this VIEWS procedure are i n the results section. GROUP A STREP Routine 06/23/2001 8:30 EDT Results for this CULTURE procedure are i n the results section. documented in this encounter Results TIBIA FIBULA 2 VIEWS (06/23/2001 9:22 EDT) Anatomical Region Laterality Modality Other Specimen Narrative [facility] - 07/24/2009 2: 24 EST LT KNEE/TIBIAL PAIN S/P ??MULTI BASKETBALL GAMES F/O FRACTURE ?? [STRESS] LEFT TIB/FIB TWO VIEWS: 06/23/01 0915 HO URS. CLINICAL HISTORY: Pain status post multiple basketball joe es, rule out stress fracture. AP and lateral views were obtained. FINDINGS: No bony abnormality is seen. Specificall y, no periosteal reaction is identified to suggest stress fracture. T he exam is normal. If further evaluation is warranted, bone sc an may be helpful. /favian Procedure Note Saúl Ruffin MD - 07/24/2009 LT KNEE/TIBIAL PAIN S/P MULTI BASKETBALL GAMES F/O FRACTURE [STRESS] LEFT TIB/FIB TWO VIEWS: 06/23/01 0915 HO URS. CLINICAL HISTORY: Pain status post multiple basketball joe es, rule out stress fracture. AP and lateral views were obtained. FINDINGS: No bony abnormality is seen. Specificall y, no periosteal reaction is identified to suggest stress fracture. T he exam is normal. If further evaluation is warranted, bone sc an may be helpful. /favian Performing Organization Address City/[facility]/ZIP Code Phon e Number [facility] [address] [facility] [place] [address] [facility] [address] [place], [place] [address] CULTURE FOR GROUP A BETA STREPTOCOCCUS (06/23/2001 8:30 EDT) Specimen Throat [facility] Description LAB Result NO GROUP A BETA [facility] STREPTOCOCCI LAB ISOLATED Report Status Final [facility] [id number] LAB Specimen Performing Organization Address City/State/ZIP Code Phon e Number [facility] [address] [place] [address] SERVICES [facility] [address] [place] [address] documented in this encounter Visit Diagnoses Not on filedocumented in this encounter
--- OUTSIDE RECORDS SUMMARY | 2022-03-19 09:26 | XMS_ITS | Encounter Summary ---
:1980 Author Organization [facility] Address [address] [place] [address] Care Team Providers Name Role Phone Reilly Madrigal MD Primary Care Provider [phone] Encounter Details Date Type Department Care Team Description 06/30/2017 Hospital Encounter [facility] - S Unknown, Pro Sarah paredes MD 1 [facility] [phone] [place] [address] (Work) [phone] Social History Tobacco Use Types Packs/Day Years Used Date Never Assessed Sex Assigned at Date Recorded Not on file documented as of this encounter Discharge Disposition Disposition Code Departure Means Destination Home or Self [facility] documented in this encounter Plan of Treatment Not on filedocumented as of this encounter Visit Diagnoses Not on filedocumented in this encounter Care Teams Mottler Machine Feeder Relationship Specialty Start Date End Date Reilly Madrigal MD PCP - General 12/18/13 09/08/[address] [place] [phone] documented as of this encounter
--- OUTSIDE RECORDS SUMMARY | 2022-03-19 09:26 | XMS_ITS | Encounter Summary ---
:1980 Author Organization [facility] Address [address] [place] [address] Care Team Providers Name Role Phone Unavailable Primary Care Provider Unavailable Encounter Details Date Type Department Care Team Description 08/18/2001 - Hospital Encounter [facility] Emergency, 08/19/2001 Emergency Department - MD Janny [facility] [address] [place], [place] [address] Social History Tobacco Use Types Packs/Day Years Used Date Never Assessed Sex Assigned at Date Recorded Not on file documented as of this encounter Discharge Disposition Disposition Code Departure Means Destination Home or Self Care documented in this encounter Plan of Treatment Not on filedocumented as of this encounter Visit Diagnoses Not on filedocumented in this encounter
--- NOTE | 2022-03-19 13:00 | HOLTER_ITS ---
APPROVED REPORT Conclusion This is a 48-hour Holter monitor ordered for palpitations Predominant rhythm was sinus with an average heart rate of 77. Minimum was 55, maximum 128 A total of 4 isolated premature ventricular contractions were seen A total of 5 atrial premature beats were recorded. There was no atrial fibrillation, no supraventricular tachycardia, no high-grade AV block, no pauses greater than 3 seconds There were no apparent patient symptoms
== END 2022-04-12 23:59 | disposition home or self-care (01) ==
LOC: RT 09:24
PROVIDERS: PCP Nurse Practitioner Family; Visit Provider Emergency Medicine
DX: R00.2 Palpitations (principal); I49.1 Atrial premature depolarization
CPT/HCPCS: 93225; 93226

== ENCOUNTER 2022-03-19 12:25 | Outpatient (CLI) | payer BC, SELFPAY ==
[2022-03-19 13:45] LABS: Calculated LDL 70 mg/dL (<100); Cholesterol 130 mg/dL (<200); HDL Cholesterol 41 mg/dL (40-60); Triglyceride 96 mg/dL (<150)
== END 2022-03-19 12:26 | disposition home or self-care (01) ==
LOC: LBO 12:26
PROVIDERS: PCP Nurse Practitioner Family; Visit Provider Nurse Practitioner Family
DX: E78.5 Hyperlipidemia, unspecified (principal)
CPT/HCPCS: 36415; 80061

== ENCOUNTER 2022-04-10 21:51 | Emergency (ER) | payer BC, SELFPAY ==
[2022-04-10 21:55] VITALS: BP 147/89; PULSE 81; RESP 18; TEMP 36.5; O2SAT 98
--- NOTE | 2022-04-11 00:15 | DI.CT_ITS ---
Exam(s) CT BRAIN NECK CTA EXAM: CT BRAIN NECK CTA CLINICAL HISTORY: neck pain and dizziness, ?dissection. TECHNIQUE: Imaging Protocol: Axial CT angiography was performed with multi-slice acquisition and mu lti-planar and/or 3D reconstructions. CONTRAST MATERIAL: Intravenous: Omnipaque 350 Contrast volume:structured data in ml COMPARISON: CT ABD PELVIS WITH CONTRAST from 05/26/2017 FINDINGS: CT angiography of the cervical cranial region was performed according to the usual protocol with intr avenous infusion of 85 cc of Omnipaque 350.. Initial noncontrast scanning of the head is unremarkable. Visualized lung apices are clear. Visualized portions of thoracic aorta and pulmonary arterial circul ation are unremarkable. There is no evidence of a cervical mass or adenopathy. The tracheal laryngeal structures appear intact. The common, internal, and external carotid arteries are within normal limits in the cervical region w ith no evidence of aneurysm, stenosis, or dissection. The vertebral arteries are unremarkable in appearance in the cervical region with no evidence of aneu rysm, stenosis, or dissection. Intracranial portions of the internal carotid arteries appear normal with no evidence of aneurysm, st enosis, or dissection. Intracranial vertebral arteries and basilar artery appear normal with no evidence of aneurysm, stenos is or dissection. No aneurysm identified in the region of the [id number]. The anterior, middle, and posterior cer ebral arteries and major branches appear intact with no evidence of aneurysm, stenosis, or dissection . No enhancing brain lesion identified on 5 minutes delayed images.. IMPRESSION: Negative CT angiography of the cervical cranial region. RADIATION DOSE DELIVERED: 1,981.35mGy.cmTotal DLP 1,981.35mGy.cm Total DLP !Error CTDIvol DATA REPOSITORY: All CT scans at this facility are submitted to the National Radiology Data Registry (NRDR) Dose Index Registry (DIR) with the [employer] (ACR). RADIATION OPTIMIZATION: All CT scans at this facility use at least one of these dose optimization te chniques: automated exposure control; mA and/or kV adjustment per patient size (includes targeted exa ms where dose is matched to clinical indication); or iterative reconstruction.
--- NOTE | 2022-04-11 00:16 | ED.GENADUL_ITS ---
Discharge Plan Disposition Patient Disposition: HOME Condition: Stable Discharge Details Clinical Impression: Neck pain, Dizziness Primary Care Provider: Yuli Mcrae ED Provider: Mert Lincoln Home Meds and New Rx's Prescriptions: New cyclobenzaprine 10 mg tablet 10 mg PO TID PRNQty: 20 0RF meclizine 25 mg tablet 25 mg PO TID PRN (Reason: dizziness) Qty: 30 0RF Continued atorvastatin 40 mg tablet 40 mg PO DAILY Qty: 90 4RF Rx Instructions: Take 1 tablet by mouth daily buspirone 10 mg tablet 10 mg PO BID Qty: 60 0RF Discharge Instructions Care Plan Goals: Your blood work and imaging did not show concerning findings at this time you can take the cyclobenzaprine as needed for neck stiffness, do not drive if you take this medicine. For dizziness you can try taking the meclizine if symptoms continue this week follow up with your primary care provider if you feel more ill, have worsening symptoms or fevers return to the emergency department Medical Decision Making 41 yo male with hx of hld and anxiety comes in with chief complaint of 3 days of neck stiffness and dizziness. He states that it started while he was at work when he turned his head talking to a coworker and felt a pain in his posterior neck and felt dizzy. He went to express care who felt it was musculoskeletal and he has no timproved so he came here for an evaluation. He now states he feels his head feels full as well. Denies any trauma or falls. No changes in vision, changes in speech, weakness or numbness. He has tenderness to the posterior neck, no meningismus and denies any recent fevers or chills. CN II-XII intact. Doesn't know what makes his dizziness better or worse or what brings it on but states it feels as though the room is spinning when he has it. His exam is not consistent with a central cva causing vertigo. Suspect peripheral vertigo with neck strain but given continued symptoms will obtain cta to evaluate for dissection. He has no fevers, chills or meningismus so doubt manager combination infection and denies ivdu and would not expect him to have a dizziness sensation with entities such as spinal epidural abscess. labs unremarkable and cta read as negative and no concerning findings. He feels better, still no meningismus. Discussed with him and suspect the neck stiffness could be from muscle spasm vs strain, will trial muscle relaxants and he will f/u with his pcp, return precautions given Differential Diagnosis Differential Diagnosis: dissection, vertigo, anxiety Medical Records Medical records reviewed: Yes I reviewed the patient's medical records. Imaging Data Radiologic Study: Attestation: I personally reviewed and interpreted this imaging study as follows: Imaging: CT Scan Radiologist's impression: negative cta Lab Data Lab results reviewed: Yes I reviewed the patient's lab results. HPI General Mode of arrival: ambulatory . Date/Time Provider Initiated Documentation: 04/10/22 22:57 . Limitations to Documentation: no limitations . Information obtained by: patient . History of Present Illness 41 year old M presents to the emergency department with the chief complaint of neck pain, described as moderate, Quality is described as aching, and is localized to the neck. Patient started experiencing this day(s) (3) and it has been constant. No relieving factors improve symptom(s), No exacerbating factors reported . Patient notes other (dizzy). Patient did receive the following treatments prior to arrival, none Related Data Home Medications Medication Instructions Recorded Confirmed atorvastatin 40 mg tablet 40 mg PO DAILY #90 tab-caps 07/25/21 04/10/22 buspirone 10 mg tablet 10 mg PO BID #60 tabs 04/10/22 04/10/22 cyclobenzaprine 10 mg tablet 10 mg PO TID PRN #20 tabs 04/11/22 meclizine 25 mg tablet 25 mg PO TID PRN dizziness #30 tabs 04/11/22 Previous Rx's Medication Instructions Recorded atorvastatin 40 mg tablet 40 mg PO DAILY #90 tab-caps 07/25/21 buspirone 10 mg tablet 10 mg PO BID #60 tabs 04/10/22 cyclobenzaprine 10 mg tablet 10 mg PO TID PRN #20 tabs 04/11/22 meclizine 25 mg tablet 25 mg PO TID PRN dizziness #30 tabs 04/11/22 Allergies Allergy/AdvReac Type Severity Reaction Status Date / Time No Known Allergies Allergy Verified 04/10/22 21:58 General Stated Complaint: Nk/Back Pain JUAQUIN: 4 Review of Systems All systems reviewed & are unremarkable except as noted in HPI and below Constitutional Constitutional: Denies chills, Denies fever(s) and Denies weakness Eyes Eyes: Denies loss of vision ENT Ears, Nose, Mouth, and Throat: Denies change in voice Cardiovascular Cardiovascular: Denies chest pain and Denies dyspnea Respiratory Respiratory: Denies cough and Denies dyspnea Gastrointestinal Gastrointestinal: Denies abdominal pain, Denies nausea and Denies vomiting Neurologic Neurologic: Denies loss of vision and Denies weakness [facility] All Active Problems (Updated 04/11/22 @ 01:43 by Mert Lincoln MD) Neck pain (Acute) Dizziness (Acute) Palpitations (Acute) Hyperlipidemia (Chronic) 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 Paternal Grandfather No problems noted. Paternal Grandmother Myocardial infarction Heart disease Social History Smoking/Tobacco Use Status: Never Second Hand Exposure: No Smoking risk assessment performed?: Yes Alcohol Intake: current Alcohol Intake frequency: a few times a month Alcohol type: beer Drug use: Never Substance use type: does not use Do you feel safe at home: Yes Do you feel safe in your relationship?: Yes Exam Const General: no acute distress Orientation: alert HENVT Head: normal to inspection Ears: external ears normal General nose exam: external nose normal Mouth: moist mucous membranes Eyes General: appearance normal, both eyes and all related structures Neck Neck: normal visual inspection Resp Effort & Inspection: normal respiratory effort and able to speak in complete sentences Cardio Rate: regular rate Skin General skin exam: no rashes or lesions noted Neuro General: patient alert and patient oriented x3 Extrem General: normal to inspection Psych Mental Status: mental status grossly normal Course Vital Signs Vital signs: Vital Signs Temperature 36.5 C 04/10/22 21:55 Pulse 81 04/10/22 21:55 Respiratory Rate 18 04/10/22 21:55 Blood Pressure 147/89 H 04/10/22 21:55 Pulse Oximetry 98 04/10/22 21:55 Temperature 36.5 C 04/10/22 21:55 Temperature Source Tympanic 04/10/22 21:55 Pulse 81 04/10/22 21:55 Respiratory Rate 18 04/10/22 21:55 Respiratory Effort Non-Labored 04/10/22 21:58 Blood Pressure 147/89 H 04/10/22 21:55 Pulse Oximetry 98 04/10/22 21:55 Pain Level 4 04/10/22 21:55
[2022-04-11 00:25] LABS: Abs Immature Grans 0.02 10^3/uL (0.0-0.06); Absolute Basophil Count 0.03 10^3/uL (0.0-0.2); Absolute Eosinophil Count 0.12 10^3/uL (0.0-0.7); Absolute Lymphocyte Count 1.74 10^3/uL (1.2-3.4); Absolute Monocyte Count 0.63 10^3/uL (0.1-0.8); Absolute Neutrophil Count 5.04 10^3/uL (1.2-6.7); Basophils % 0.4; Eosinophils % 1.6; HCT 44.5 % (40.0-50.0); HGB 15.5 g/dL (13.5-17.5); Immature Grans % 0.3; MCH 29.8 pg (27.0-33.0); MCHC 34.8 % (32.0-36.0); MCV 86 fL (80-95); MPV 9.4 fL (8.0-11.0); Monocytes % 8.3; Neutrophils % 66.4; Platelet Count 303 10^3/uL (130-400); RDW 11.9 % (11.8-14.1); RDW-SD 37.1 fL; WBC 7.58 10^3/uL (4.4-10.8)
[2022-04-11] MEDS: Meclizine 25 MG TAB PO (00:28)
[2022-04-11] MEDS: Ketorolac 15 MG/ML VIAL IVP (00:28)
[2022-04-11 00:39] LABS: ALT 44 U/L (16-63); AST 18 U/L (15-37); Albumin 4.6 g/dL (3.4-5.0); Alkaline Phosphatase 67 U/L (46-116); Anion Gap 8.6 mmol/L (3-11); BUN 10 mg/dL (7-18); CO2 27.4 mmol/L (21.0-32.0); Calcium 9.4 mg/dL (8.5-10.1); Chloride 103 mmol/L (98-107); Glucose 102 mg/dL (74-106); Potassium 3.9 mmol/L (3.5-5.1); Sodium 139 mmol/L (136-145); Total Protein 7.8 g/dL (6.4-8.2)
[2022-04-11] MEDS: Omnipaque 350 MG/ML 100 ML BTL IJ (00:39)
[2022-04-11] MEDS: Normal Saline Flush 10 ML SYR IVP (01:10)
--- NOTE | 2022-04-11 01:25 | DI.VRAD_ITS ---
Addendum created by Camilo Shah MD on 04/11/2022 1:58:56 AM EDT: There is a small right frontoparietal subgaleal lipoma noted measuring 15 x 4 mm. See series 19, image 35. This is a benign incidental finding. 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 See coronal series 17, image 36. Initial report created on 04/11/2022 1:24:32 AM EDT: PROCEDURE INFORMATION: Exam: CTA Head With Contrast, Arteriography Exam date and time: 04/11/2022 12:42 AM Age: 41 years old Clinical indication: Stroke-like symptoms; Dizziness/giddiness; Additional info: Dizziness, neck pain. ? Dissection TECHNIQUE: Imaging protocol: Computed tomographic angiography of the head with contrast. Exam focused on the arteries. 3D rendering (Not supervised by radiologist): MIP and/or 3D reconstructed images were created by the technologist. Radiation optimization: All CT scans at this facility use at least one of these dose optimization techniques: automated exposure control; mA and/or kV adjustment per patient size (includes targeted exams where dose is matched to clinical indication); or iterative reconstruction. Contrast material: OMNIPAQUE 350; Contrast volume: 85 ml; Contrast route: INTRAVENOUS (IV); COMPARISON: MRA HEAD WO 04/29/2018 12:34 AM FINDINGS: ANTERIOR CIRCULATION: Right internal carotid artery: Unremarkable. Intracranial segment is patent with no significant stenosis. No aneurysm. Small focus of calcium in the cavernous segment of the right internal carotid artery. No stenosis. Right middle cerebral artery: Unremarkable. No occlusion or significant stenosis. No aneurysm. Right anterior cerebral artery: Unremarkable. No occlusion or significant stenosis. No aneurysm. Left internal carotid artery: Unremarkable. Intracranial segment is patent with no significant stenosis. No aneurysm. Left middle cerebral artery: Unremarkable. No occlusion or significant stenosis. No aneurysm. Left anterior cerebral artery: Unremarkable. No occlusion or significant stenosis. No aneurysm. POSTERIOR CIRCULATION: Right vertebral artery: Dominant right-side. No occlusion or significant stenosis. No aneurysm. Left vertebral artery: Unremarkable. No occlusion or significant stenosis. No aneurysm. Basilar artery: Unremarkable. No occlusion or significant stenosis. No aneurysm. Right posterior cerebral artery: Unremarkable. No occlusion or significant stenosis. No aneurysm. Left posterior cerebral artery: Unremarkable. No occlusion or significant stenosis. No aneurysm. Brain: No definite mass, mass effect, or midline shift. Cerebral ventricles: No ventriculomegaly. Bones/joints: Unremarkable. No acute fracture. Soft tissues: Unremarkable. IMPRESSION: 1. No large vessel stenosis or occlusion. 2. No intracranial hemorrhage. No mass or edema. 3. Cerebellum and brainstem are unremarkable. 4. Inner ear structures are unremarkable as visualized. 5. Venous sinuses opacify normally. PROCEDURE INFORMATION: Exam: CTA Neck With Contrast Exam date and time: 04/11/2022 12:42 AM Age: 41 years old Clinical indication: Stroke-like symptoms; Dizziness/giddiness; Additional info: Dizziness, neck pain. ? Dissection TECHNIQUE: Imaging protocol: Computed tomographic angiography of the neck with contrast. 3D rendering (Not supervised by radiologist): MIP and/or 3D reconstructed images were created by the technologist. Radiation optimization: All CT scans at this facility use at least one of these dose optimization techniques: automated exposure control; mA and/or kV adjustment per patient size (includes targeted exams where dose is matched to clinical indication); or iterative reconstruction. Contrast material: OMNIPAQUE 350; Contrast volume: 85 ml; Contrast route: INTRAVENOUS (IV); COMPARISON: US CAROTID ULTRASOUND 04/27/2018 3:20 PM FINDINGS: Right common carotid artery: No stenosis. No dissection or occlusion. Right internal carotid artery: No stenosis of the extracranial segment. No dissection or occlusion. Right external carotid artery: No occlusion or stenosis of the origin. Left common carotid artery: No stenosis. No dissection or occlusion. Left internal carotid artery: No stenosis of the extracranial segment. No dissection or occlusion. Left external carotid artery: No occlusion or stenosis of the origin. Right vertebral artery: No stenosis. No dissection or occlusion. Dominant right vertebral artery Left vertebral artery: No stenosis. No dissection or occlusion. Soft tissues: Normal. No significant soft tissue swelling. Bones/joints: No acute fracture. Unremarkable features of the cervical spine. No significant degenerative change. IMPRESSION: 1. No stenosis or occlusion. 2. Cervical carotid and vertebral arteries are widely patent. 3. Lung apices are clear. 4. Soft tissues of the neck are unremarkable. REFERENCES: NASCET CRITERIA. The degree of internal carotid artery stenosis is based on NASCET criteria. Normal is no stenosis. Mild is less than 50% stenosis. Moderate is 50-69% stenosis. Severe is 70% to 99% stenosis. Total occlusion is no detectable patent lumen. Dictated and Authenticated by: Camilo Shah MD. Ordering:FRANK Painting MD
[2022-04-11] MEDS: Cyclobenzaprine 10 MG TAB, 3 TABS/BTL PO (02:10)
== END 2022-04-11 02:19 | disposition home or self-care (01) ==
PROVIDERS: Emergency Provider Emergency Medicine; PCP Nurse Practitioner Family
DX: M54.2 Cervicalgia (principal); R42 Dizziness and giddiness
CPT/HCPCS: 70496; 70498; 80053; 96374; 99285; 85025; 99284; J1885; J3490

== ENCOUNTER 2022-04-16 11:34 | Outpatient (CLI) | payer BC, SELFPAY ==
--- NOTE | 2022-04-16 11:30 | RT.EKG_ITS ---
APPROVED REPORT Exam: Resting ECG Reason for Exam: Anxiety Patient Location: O HR:96 bpm ECG Measurements Heart Rate 96 AXIS MT 141 P 45 QRSd 83 QRS 34 QT 354 T 44 QTc 448 Conclusion Sinus rhythm...normal P axis, V-rate 50- [address] abnormalities
== END 2022-04-16 11:35 | disposition home or self-care (01) ==
LOC: DI.CM 11:35
PROVIDERS: PCP Nurse Practitioner Family; Visit Provider Nurse Practitioner Family
DX: R07.89 Other chest pain (principal)
CPT/HCPCS: 93010

== ENCOUNTER 2022-04-16 15:17 | Emergency (ER) | payer BC, SELFPAY ==
[2022-04-16] VITALS (17 sets, daily range): BP systolic 120–139; BP diastolic 83–98; PULSE 80–114; RESP 12–21; TEMP 35.7–37.2; O2SAT 95–98
--- NOTE | 2022-04-16 15:15 | RT.EKG_ITS ---
APPROVED REPORT Exam: Resting ECG Reason for Exam: tachycardia, chest pain Patient Location: E HR:107 bpm ECG Measurements Heart Rate 107 AXIS [place] 133 P 65 QRSd 75 QRS 64 QT 318 T -8 QTc 425 Conclusion Sinus tachycardia...rate> 99. Sinus. Normal axis. No STEMI. I have reviewed and interpreted ECG and agree with software generated interpretation.
--- NOTE | 2022-04-16 15:45 | RT.EKG_ITS ---
APPROVED REPORT Exam: Resting ECG Reason for Exam: chest pain Patient Location: E HR:88 bpm ECG Measurements Heart Rate 88 AXIS VT 160 P 9 QRSd 120 QRS 9 QT 317 T 177 QTc 384 Conclusion Sinus rhythm...normal P axis, V-rate 50- 99 Nonspecific intraventricular conduction delay...QRSd >115mS, not LBBB/RBBB Nonspecific repol abnormality, diffuse leads...ST dep, T flat/neg, ant/lat/inf WRONG PATIENT NAME ON EKG. DISREGARD THIS EKG.
[2022-04-16 16:10] LABS: Abs Immature Grans 0.03 10^3/uL (0.0-0.06); Absolute Basophil Count 0.01 10^3/uL (0.0-0.2); Absolute Eosinophil Count 0.04 10^3/uL (0.0-0.7); Absolute Lymphocyte Count 1.43 10^3/uL (1.2-3.4); Absolute Monocyte Count 0.44 10^3/uL (0.1-0.8); Absolute Neutrophil Count 5.26 10^3/uL (1.2-6.7); Basophils % 0.1; Eosinophils % 0.6; HCT 44.8 % (40.0-50.0); HGB 15.5 g/dL (13.5-17.5); Immature Grans % 0.4; Lymphocytes % 19.8; MCH 29.8 pg (27.0-33.0); MCHC 34.6 % (32.0-36.0); MCV 86 fL (80-95); MPV 9.7 fL (8.0-11.0); Monocytes % 6.1; Platelet Count 320 10^3/uL (130-400); RDW 11.9 % (11.8-14.1); RDW-SD 37.2 fL; WBC 7.21 10^3/uL (4.4-10.8)
[2022-04-16 16:34] LABS: ALT 52 U/L (16-63); AST 25 U/L (15-37); Albumin 4.7 g/dL (3.4-5.0); Alkaline Phosphatase 65 U/L (46-116); Anion Gap 12.1 mmol/L (3-11); BUN 14 mg/dL (7-18); CO2 23.9 mmol/L (21.0-32.0); CREATININE 0.9 mg/dL (0.70-1.30); Calcium 9.3 mg/dL (8.5-10.1); Chloride 100 mmol/L (98-107); Glucose 89 mg/dL (74-106); Potassium 3.6 mmol/L (3.5-5.1); Sodium 136 mmol/L (136-145); TSH (W/Ref FT4) 1.63 uIU/mL (0.36-3.74); Total Protein 7.8 g/dL (6.4-8.2); Troponin I < 50 ng/L (<or=60)
[2022-04-16 16:49] LABS: D-Dimer 215 ng/mlFEU (<500)
--- NOTE | 2022-04-16 17:47 | ED.GENADUL_ITS ---
Discharge Plan Disposition Patient Disposition: HOME Condition: Stable Discharge Details Clinical Impression: Chest pain Primary Care Provider: Yuli Mcrae ED Provider: Alka Landrum Home Meds and New Rx's Prescriptions: Continued atorvastatin 40 mg tablet 40 mg PO DAILY Qty: 90 4RF Rx Instructions: Take 1 tablet by mouth daily clonazepam 0.5 mg tablet 0.5 mg PO BID Qty: 30 0RF buspirone 10 mg tablet 10 mg PO BID Qty: 60 0RF cyclobenzaprine 10 mg tablet 10 mg PO TID PRNQty: 20 0RF meclizine 25 mg tablet 25 mg PO TID PRN (Reason: dizziness) Qty: 30 0RF Discharge Instructions Instructions: Chest Pain (ED) Additional Instructions: take clonazepam as needed if you feel anxious follow-up with your doctor follow-up with your counselor return earlier should you have new or worsening complaints Referrals: Yuli Mcrae, STEPHANE [Primary Care Provider] - Discharge Data Discharge Date/Time-TO BE ENTERED AT DEPARTURE: 04/16/22 17:55 Medical Decision Making Patient appears well He has been evaluated on several occasions for similar symptoms His troponin is negative and his symptoms have been present for greater than 8 hours, 1 troponin is reasonable EKG does not show evidence of acute abnormality D-dimer is negative Patient denies any chest discomfort Electrolytes are within normal limits Referred back to his primary care physician Will take it on as a plan should he have additional episodes with the event Medical Records Medical records reviewed: Yes I reviewed the patient's medical records. Lab Data Lab results reviewed: Yes I reviewed the patient's lab results. HPI General Date/Time Provider Initiated Documentation: 04/16/22 15:38 . HPI Narrative: This 41-year-old male presents with burning in chest, report of palpitations started early this morning. He denies any exertional component to his symptoms. This is his third visit for similar symptoms. He states that the symptoms began shortly after he helped resuscitate a friend who is having a stroke. He states that he has been quite anxious about that. She now has been seeing a counselor and was prescribed clonazepam. He denies any pleuritic chest pain. He denies any fever or chills. He denies any trauma to the affected area. He denies any recent flights, surgeries, long drives. He denies any significant risk factors for coronary artery disease. Denies hypertension, hyperlipidemia, tobacco use. Father reportedly had an CO in his 50s with a letter relatively unhealthy lifestyle . Denies any illicit drug use. Related Data Home Medications Medication Instructions Recorded Confirmed atorvastatin 40 mg tablet 40 mg PO DAILY #90 tab-caps 07/25/21 04/16/22 buspirone 10 mg tablet 10 mg PO BID #60 tabs 04/10/22 04/16/22 cyclobenzaprine 10 mg tablet 10 mg PO TID PRN #20 tabs 04/11/22 04/16/22 meclizine 25 mg tablet 25 mg PO TID PRN dizziness #30 tabs 04/11/22 04/16/22 clonazepam 0.5 mg tablet 0.5 mg PO BID #30 tabs 04/16/22 04/16/22 Previous Rx's Medication Instructions Recorded atorvastatin 40 mg tablet 40 mg PO DAILY #90 tab-caps 07/25/21 buspirone 10 mg tablet 10 mg PO BID #60 tabs 04/10/22 cyclobenzaprine 10 mg tablet 10 mg PO TID PRN #20 tabs 04/11/22 meclizine 25 mg tablet 25 mg PO TID PRN dizziness #30 tabs 04/11/22 clonazepam 0.5 mg tablet 0.5 mg PO BID #30 tabs 04/16/22 Allergies Allergy/AdvReac Type Severity Reaction Status Date / Time No Known Allergies Allergy Verified 04/16/22 11:11 General Stated Complaint: Chest Pain JUAQUIN: 2 Review of Systems All systems reviewed & are unremarkable except as noted in HPI and below PFSH All Active Problems (Updated 04/16/22 @ 17:52 by KAYLIE Elaine) Chest pain (Acute) Neck pain (Acute) Dizziness (Acute) Hyperlipidemia (Chronic) 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 Paternal Grandfather No problems noted. Paternal Grandmother Myocardial infarction Heart disease Social History Smoking/Tobacco Use Status: Never Second Hand Exposure: No Smoking risk assessment performed?: Yes Alcohol Intake: current Alcohol Intake frequency: a few times a month Alcohol type: beer Drug use: Never Substance use type: does not use Do you feel safe at home: Yes Do you feel safe in your relationship?: Yes Exam Const General: cooperative, comfortable and no acute distress Orientation: alert and oriented x3 Eyes Pupils: PERRL Chest Chest: normal inspection of the chest Resp Effort & Inspection: normal respiratory effort Auscultation: clear to auscultation bilaterally Cardio Rate: regular rate Rhythm: regular rhythm Heart Sounds: no murmurs GI Other: No abdominal bruit or pulsatile mass Skin General skin exam: no rashes or lesions noted Neuro General: patient alert and patient oriented x3 Extrem Other: Distal pulses intact, no calf swelling or tenderness Course Vital Signs Vital signs: Vital Signs Temperature 37.2 C 04/16/22 15:23 Pulse 105 H 04/16/22 15:23 Respiratory Rate 18 04/16/22 15:23 Blood Pressure 139/98 H 04/16/22 15:23 Pulse Oximetry 97 04/16/22 15:23 Temperature 37.2 C 04/16/22 15:23 Temperature Source Temporal Artery Scan 04/16/22 15:23 Pulse 80 04/16/22 17:30 Pulse 80 04/16/22 17:40 Respiratory Rate 18 04/16/22 17:40 Respiratory Effort Non-Labored 04/16/22 15:29 Respiratory Depth Normal 04/16/22 15:29 Respiratory Pattern Normal 04/16/22 15:29 Blood Pressure 120/83 04/16/22 17:30 Blood Pressure Mean 91 04/16/22 17:30 Blood Pressure Position Sitting 04/16/22 15:23 Pulse Oximetry 97 04/16/22 17:40 Oxygen Delivery Method Room Air 04/16/22 15:23 Oxygen Flow Rate 0 04/16/22 15:23 Lab/Test Results Lab/Test Results: Laboratory Tests Range/Units 04/16/22 04/16/22 04/16/22 15:40 15:40 15:40 WBC (4.4-10.8) 10^3/uL 7.21 RBC (4.36-5.78) 10^6/uL 5.20 Hgb (13.5-17.5) g/dL 15.5 Hct (40.0-50.0) % 44.8 MCV (80-95) fL 86 MCH (27.0-33.0) pg 29.8 MCHC (32.0-36.0) % 34.6 RDW (11.8-14.1) % 11.9 Plt Count (130-400) 10^3/uL 320 MPV (8.0-11.0) fL 9.7 Immature Gran % 0.4 Neutrophils % 73.0 Lymphocytes % 19.8 Monocytes % 6.1 Eosinophils % 0.6 Basophils % 0.1 Nucleated RBC % (0.0-0.3) % 0.0 Absolute Neutrophils (1.2-6.7) 10^3/uL 5.26 Absolute Lymphocytes (1.2-3.4) 10^3/uL 1.43 Absolute Monocytes (0.1-0.8) 10^3/uL 0.44 Absolute Eosinophils (0.0-0.7) 10^3/uL 0.04 Absolute Basophils (0.0-0.2) 10^3/uL 0.01 D-Dimer (<500) ng/mlFEU 215 Sodium (136-145) mmol/L 136 Potassium (3.5-5.1) mmol/L 3.6 Chloride (98-107) mmol/L 100 Carbon Dioxide (21.0-32.0) mmol/L 23.9 Anion Gap (3-11) mmol/L 12.1 H BUN (7-18) mg/dL 14 Creatinine (0.70-1.30) mg/dL 0.9 Estimated GFR/1.73 m2 (mL/min/1.73m2) >= 60.00 Glucose (74-106) mg/dL 89 Calcium (8.5-10.1) mg/dL 9.3 Magnesium (1.8-2.4) mg/dL 2.0 Total Bilirubin (0.2-1.0) mg/dL 1.0 AST (15-37) U/L 25 ALT (16-63) U/L 52 Alkaline Phosphatase (46-116) U/L 65 Troponin I (<or=60) ng/L < 50 Total Protein (6.4-8.2) g/dL 7.8 Albumin (3.4-5.0) g/dL 4.7 TSH (0.36-3.74) uIU/mL 1.63 PAWSS Have you Been Recently Intoxicated or Drunk Within the Last 30 days?: No Have you Ever Experienced Previous Episodes of Alcohol Withdrawal?: No Have you ever Experienced Withdrawal Seizures?: No Have you ever Experienced Delirium Tremens(DT)s?: No Have you ever undergone Alcohol Rehabilitation Treatment (i.e, inpt ot outpatient treatment programs)?: No Have you ever Experienced Blackouts?: No Have you ever Combined Alcohol with other Downers within the last 90 days?: No Have you ever Combined Alcohol with any other Substance of Abuse during the last 90 days?: No Positive Blood Alcohol level on Presentation? [PCS.BAL]: No Evidence of Increased Autonomic Activity (i.e. HR>120, tremor, sweating, agitation, nausea)?: No Result: 0
== END 2022-04-16 17:55 | disposition home or self-care (01) ==
PROVIDERS: Emergency Provider Physician Assistant; PCP Nurse Practitioner Family
DX: R07.9 Chest pain, unspecified (principal)
CPT/HCPCS: 36415; 80053; 93005; 99283; 83735; 84443; 84484; 85025; 85379; 93010; 99284

== ENCOUNTER 2022-04-23 16:46 | Outpatient (CLI) | payer BC, SELFPAY ==
--- NOTE | 2022-04-23 16:45 | RT.EKG_ITS ---
APPROVED REPORT Exam: Resting ECG Reason for Exam: chest discomfort Patient Location: O HR:102 bpm ECG Measurements Heart Rate 102 AXIS [place] 147 P 46 QRSd 82 QRS 42 QT 326 T 32 QTc 425 Conclusion Sinus tachycardia...rate> 99 Normal Electrocardiogram
== END 2022-04-23 16:47 | disposition home or self-care (01) ==
LOC: DI.CM 16:46
PROVIDERS: PCP Nurse Practitioner Family; Visit Provider Nurse Practitioner Family
DX: R07.89 Other chest pain (principal); R00.0 Tachycardia, unspecified
CPT/HCPCS: 93010

== ENCOUNTER 2022-04-23 19:04 | Emergency (ER) | payer BC, SELFPAY ==
[2022-04-23] VITALS (12 sets, daily range): BP systolic 116–142; BP diastolic 78–99; PULSE 73–120; RESP 11–24; TEMP 36; O2SAT 96–97
--- NOTE | 2022-04-23 19:00 | RT.EKG_ITS ---
APPROVED REPORT Exam: Resting ECG Reason for Exam: chest pain Patient Location: E HR:100 bpm ECG Measurements Heart Rate 100 AXIS [place] 150 P 41 QRSd 75 QRS 45 QT 340 T 38 QTc 439 Conclusion Sinus tachycardia...rate> 99. Sinus. Normal axis. No STEMI. I have reviewed and interpreted ECG and agree with software generated interpretation.
--- NOTE | 2022-04-23 20:12 | ED.GENADUL_ITS ---
Discharge Plan Disposition Patient Disposition: HOME Condition: Improving Discharge Details Clinical Impression: Palpitations Primary Care Provider: Yuli Mcrae ED Provider: John Sharma Home Meds and New Rx's Prescriptions: Continued atorvastatin 40 mg tablet 40 mg PO DAILY Qty: 90 4RF Rx Instructions: Take 1 tablet by mouth daily clonazepam 0.5 mg tablet 0.5 mg PO BID Qty: 30 0RF buspirone 10 mg tablet 10 mg PO BID Qty: 60 0RF cyclobenzaprine 10 mg tablet 10 mg PO TID PRNQty: 20 0RF meclizine 25 mg tablet 25 mg PO TID PRN (Reason: dizziness) Qty: 30 0RF Discharge Instructions Instructions: Heart Palpitations (ED) Additional Instructions: At this time your EKG is unremarkable for any obvious emergent process and your heart rate is now in the 70s. Using shared decision making we discussed further evaluation here in the ER versus discharge and follow-up with your PCP tomorrow as already scheduled. At this time you have opted to be discharged with close outpatient follow-up. I do believe this to be a reasonable plan given your recent evaluations. Please watch for new or worsening symptoms and return to the ER for any concerns Medical Decision Making 41-year-old gentleman has been having anxiety and panic attacks ever since seeing a coworker have a stroke, he feels heart palpitations, and worsening anxiety, has been evaluated multiple times. Reviewing his records he has had negative CTA of the head and neck, normal cardiac enzymes, normal TSH, normal D- dimer. I spent extensive period of time talking with the patient regarding his work-up, ongoing symptoms, and work-up moving forward. Patient is already worn a Holter monitor for 48 hours. He is scheduled to see his PCP tomorrow and was given a cardiology referral. During my evaluation patient's heart rate went from the 90s down to the 70s and he was no longer symptomatic. I did discuss with the patient that we could obtain laboratory values, recheck cardiac enzymes, D-dimer, TSH, etc. Given that he is now asymptomatic and has had these studies performed very recently, he declines. At this time extremely low suspicion of ACS, PE, etc. I believe this to be reasonable plan but we did discuss the importance of returning to the ER for new or evolving symptoms or further evaluation through his PCP tomorrow as already scheduled Strict discharge and return precautions were provided. Patient understands, is agreeable to this plan, and has no additional questions or concerns upon discharge. This documentation was generated using [employer] system, please disregard any oddities of phrase or misspellings. Medical Records Medical records reviewed: Yes I reviewed the patient's medical records. ECG Data Attestation: I personally reviewed and interpreted this ECG (s) as follows: Interpretation: Sinus tachycardia, ventricular rate 100, no STEMI. HPI General Mode of arrival: ambulatory . Date/Time Provider Initiated Documentation: 04/23/22 19:14 . Limitations to Documentation: no limitations . Information obtained by: patient . HPI Narrative: This is a 41-year-old gentleman, past medical history of hyperlipidemia, stenosis of his right carotid artery, presenting to the ER for anxiety and palpitations that began earlier today. Patient states that he recently saw a coworker have a stroke and ever since that time he has had the symptoms intermittently with multiple visits to the ER and express care and has had multiple thorough work-ups. Patient states that earlier today he felt his heart racing, looked on his apple watch and noticed it to be in the 130s, he tried to control his heart rate for nearly an hour, was unsuccessful and then took a milligram of clonazepam. He states this helped somewhat but his heart rate remains elevated and [facility] set him up with a cardiology referral made PCP appointment tomorrow. Patient went home but his heart rate remained over 100 so he came to the ER for further evaluation. He states he had a small amount of substernal chest pressure when his heart was beating fast but has never had any chest pain or shortness of breath. He denies headache, recent illness or trauma, fever, cough, abdominal pain, pain or swelling in his legs. Patient tells me that he wore a Holter monitor twice but only for 48 hours and it did not show anything. Related Data Home Medications Medication Instructions Recorded Confirmed atorvastatin 40 mg tablet 40 mg PO DAILY #90 tab-caps 07/25/21 04/23/22 buspirone 10 mg tablet 10 mg PO BID #60 tabs 04/10/22 04/23/22 cyclobenzaprine 10 mg tablet 10 mg PO TID PRN #20 tabs 04/11/22 04/23/22 meclizine 25 mg tablet 25 mg PO TID PRN dizziness #30 tabs 04/11/22 04/23/22 clonazepam 0.5 mg tablet 0.5 mg PO BID #30 tabs 04/16/22 04/23/22 Previous Rx's Medication Instructions Recorded atorvastatin 40 mg tablet 40 mg PO DAILY #90 tab-caps 07/25/21 buspirone 10 mg tablet 10 mg PO BID #60 tabs 04/10/22 cyclobenzaprine 10 mg tablet 10 mg PO TID PRN #20 tabs 04/11/22 meclizine 25 mg tablet 25 mg PO TID PRN dizziness #30 tabs 04/11/22 clonazepam 0.5 mg tablet 0.5 mg PO BID #30 tabs 04/16/22 Allergies Allergy/AdvReac Type Severity Reaction Status Date / Time No Known Allergies Allergy Verified 04/23/22 19:14 General Stated Complaint: Palpitatns JUAQUIN: 3 Review of Systems Constitutional Constitutional: Denies fatigue, Denies fever(s), Denies headache(s) and Denies weakness Eyes Eyes: Denies change in vision ENT Ears, Nose, Mouth, and Throat: Denies headache(s) and Denies neck pain Cardiovascular Cardiovascular: Denies chest pain, Reports palpitations and Denies dyspnea Respiratory Respiratory: Denies cough and Denies dyspnea Gastrointestinal Gastrointestinal: Denies abdominal pain, Denies nausea and Denies vomiting Musculoskeletal Musculoskeletal: Denies back pain and Denies neck pain Integumentary/Breasts Skin/Breast: Denies rash Neurologic Neurologic: Denies headache(s) and Denies weakness Psychiatric Psychiatric: Reports anxiety Endocrine Endocrine: Denies fatigue and Reports palpitations Hematologic/Lymphatic Hematologic/Lymphatic: Denies easy bleeding and Denies easy bruising PFSH All Active Problems Palpitations (Acute) Chest pain (Acute) Neck pain (Acute) Dizziness (Acute) Hyperlipidemia (Chronic) 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 Paternal Grandfather No problems noted. Paternal Grandmother Myocardial infarction Heart disease Social History Smoking/Tobacco Use Status: Never Second Hand Exposure: No Smoking risk assessment performed?: Yes Alcohol Intake: current Alcohol Intake frequency: a few times a month Alcohol type: beer Drug use: Never Substance use type: does not use Do you feel safe at home: Yes Do you feel safe in your relationship?: Yes Exam Const General: cooperative, healthy appearing, comfortable, no acute distress and anxious Orientation: alert, awake and oriented x3 HENMT Head: normal to inspection, normocephalic and atraumatic Eyes General: appearance normal, both eyes and all related structures Conjunctivae: conjunctivae normal Neck Neck: normal visual inspection, full ROM, trachea midline and supple Resp Effort & Inspection: normal respiratory effort and able to speak in complete sentences Auscultation: clear to auscultation bilaterally Cardio Rate: regular rate Rhythm: regular rhythm Skin General skin exam: no rashes or lesions noted Neuro General: patient alert, patient awake, patient oriented x3, moves all extremities and no focal motor deficits Cognition: normal cognition Speech: speech normal Gait: normal gait Sensory Exam: no sensory deficits noted Extrem General: normal to inspection, full ROM, capillary refill normal, no pedal edema and no calf tenderness Psych Appearance: grossly normal Mental Status: mental status grossly normal Course Vital Signs Vital signs: Vital Signs Temperature 36.0 C L 04/23/22 19:09 Pulse 120 H 04/23/22 19:09 Respiratory Rate 13 04/23/22 19:09 Blood Pressure 142/99 H 04/23/22 19:09 Pulse Oximetry 97 04/23/22 19:09 Temperature 36.0 C L 04/23/22 19:09 Temperature Source Tympanic 04/23/22 19:09 Pulse 77 04/23/22 20:01 Pulse 86 04/23/22 20:01 Respiratory Rate 11 L 04/23/22 20:01 Respiratory Effort Non-Labored 04/23/22 19:16 Blood Pressure 123/82 04/23/22 20:01 Blood Pressure Mean 91 04/23/22 20:01 Blood Pressure Position Sitting 04/23/22 19:09 Pulse Oximetry 97 04/23/22 20:01 Oxygen Delivery Method Room Air 04/23/22 19:09 Oxygen Flow Rate 0 04/23/22 19:09 Pain Level 0 04/23/22 19:09
== END 2022-04-23 20:33 | disposition home or self-care (01) ==
PROVIDERS: Emergency Provider Physician Assistant; PCP Nurse Practitioner Family
DX: R00.2 Palpitations (principal); F41.9 Anxiety disorder, unspecified; R07.2 Precordial pain
CPT/HCPCS: 93005; 99283; 93010; 99282

== ENCOUNTER 2022-05-02 20:38 | Emergency (ER) | payer BC, SELFPAY ==
[2022-05-02 20:49] VITALS: BP 119/82; PULSE 82; RESP 16; TEMP 36.6; O2SAT 98
[2022-05-02 20:54] VITALS: RESP 16
--- NOTE | 2022-05-02 21:09 | ED.GENADUL_ITS ---
Discharge Plan Disposition Patient Disposition: HOME Condition: Good Discharge Details Chief Complaint: Anxiety Clinical Impression: Medication side effect Primary Care Provider: Yuli Mcrae ED Provider: Adriel Johnson Home Meds and New Rx's Prescriptions: No Action atorvastatin 40 mg tablet 40 mg PO DAILY Qty: 90 4RF Rx Instructions: Take 1 tablet by mouth daily escitalopram oxalate 10 mg tablet 10 mg PO DAILY Qty: 30 1RF Rx Instructions: 1/2 tab daily x 5 days then 1 tab daily. clonazepam 0.5 mg tablet 0.5 mg PO BID Qty: 30 0RF cyclobenzaprine 10 mg tablet 10 mg PO TID PRNQty: 20 0RF meclizine 25 mg tablet 25 mg PO TID PRN (Reason: dizziness) Qty: 30 0RF Discharge Instructions Additional Instructions: At this time I feel that your symptoms appear consistent with a likely a mild side effect from medication as he transition to the new med. However there is a small chance this may be an early sign of what is called tardive dyskinesia. Please take 25 mg of Benadryl when you get home this evening. If you still do not feel like you can sleep you can take 1 additional tablet of the Klonopin. Please also take an [id number] B complex vitamin to help with the tingling that you may have. If you notice any worsening of your symptoms, or any new symptoms such as vomiting, diarrhea, fever, chills, shortness of breath, chest pain, numbness, weakness, or fainting , please return immediately to the emergency department for reevaluation. Please follow up with your primary care provider as soon as possible for reassessment and reevaluation. As always, it was a pleasure participating in your medical care today. Referrals: Yuli Mcrae, [employer]PECTOR [Primary Care Provider] - Medical Decision Making Is a 41-year-old male with a past medical history of anxiety that he has been dealing with on an outpatient basis and monitoring and managing with his primary care provider. He recently switched from buspirone to escitalopram a few days ago. Over the last 24 to 36 hours he has developed mild tingling sensation in his lips, as well as a feeling of his throat catching or spasming. It all came on this morning when he was having a notable episode of stress at his very stressful work. He did take his Klonopin which helped a tiny bit, but symptoms have persisted. He denies any difficulty drinking or swallowing. He denies any difficulty controlling his secretions. No pain otherwise. No fever or chills. No cough or shortness of breath or hoarse throat. No other modifying factors. Physical exam demonstrates a well-appearing male, no evidence of airway compromise, Ludewig's angina, or other significant abnormalities. Limited bedside ultrasound shows no signs of fluid, cobblestoning, interplaying fluid, or other abnormality. Facial exam demonstrates no focal neurologic deficits or evidence of diminished sensation although the subjective sensation deficit is certainly still present. At this time I suspect the patient's symptoms are a side effect of his medication, however there is a small likelihood that this could be secondary to potential early tardive dyskinesia. We will recommend Benadryl at home. Continue rehydration. Additionally a less likely cause could be a B vitamin deficiency, we have recommended that he take a B vitamin complex as well at home. Discussed red flags which to return. He follows up closely with his primary care provider in 3 days. I have extensively reviewed the treatment plan and discharge instructions with the patient. I have addressed all patient concerns at this time. The patient was made aware of what symptoms to monitor for that would warrant a return to the emergency department. Discussed the plan with the patient, they demonstrate verbal understanding and agreement with our assessment and plan at this time. The documentation in this chart was dictated using One[employer] dictation software. Please excuse any dictation errors. HPI General Date/Time Provider Initiated Documentation: 05/02/22 20:38 . HPI Narrative: Is a 41-year-old male with a past medical history of anxiety that he has been dealing with on an outpatient basis and monitoring and managing with his primary care provider. He recently switched from buspirone to escitalopram a few days ago. Over the last 24 to 36 hours he has developed mild tingling sensation in his lips, as well as a feeling of his throat catching or spasming. It all came on this morning when he was having a notable episode of stress at his very stressful work. He did take his Klonopin which helped a tiny bit, but symptoms have persisted. He denies any difficulty drinking or swallowing. He denies any difficulty controlling his secretions. No pain otherwise. No fever or chills. No cough or shortness of breath or hoarse throat. No other modifying factors. Related Data Home Medications Medication Instructions Recorded Confirmed atorvastatin 40 mg tablet 40 mg PO DAILY #90 tab-caps 07/25/21 05/02/22 cyclobenzaprine 10 mg tablet 10 mg PO TID PRN #20 tabs 04/11/22 04/24/22 meclizine 25 mg tablet 25 mg PO TID PRN dizziness #30 tabs 04/11/22 04/24/22 clonazepam 0.5 mg tablet 0.5 mg PO BID #30 tabs 04/24/22 05/02/22 escitalopram oxalate 10 mg tablet 10 mg PO DAILY #30 tabs 04/24/22 05/02/22 Previous Rx's Medication Instructions Recorded atorvastatin 40 mg tablet 40 mg PO DAILY #90 tab-caps 07/25/21 cyclobenzaprine 10 mg tablet 10 mg PO TID PRN #20 tabs 04/11/22 meclizine 25 mg tablet 25 mg PO TID PRN dizziness #30 tabs 04/11/22 clonazepam 0.5 mg tablet 0.5 mg PO BID #30 tabs 04/24/22 escitalopram oxalate 10 mg tablet 10 mg PO DAILY #30 tabs 04/24/22 Allergies Allergy/AdvReac Type Severity Reaction Status Date / Time No Known Allergies Allergy Verified 05/02/22 20:54 General Stated Complaint: Anxiety JUAQUIN: 2 Review of Systems All systems reviewed & are unremarkable except as noted in HPI and below PFSH All Active Problems Palpitations (Acute) Medication side effect (Acute) Chest pain (Acute) Neck pain (Acute) Dizziness (Acute) Hyperlipidemia (Chronic) 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 Paternal Grandfather No problems noted. Paternal Grandmother Myocardial infarction Heart disease Social History Smoking/Tobacco Use Status: Never Second Hand Exposure: No Smoking risk assessment performed?: Yes Alcohol Intake: current Alcohol Intake frequency: a few times a month Alcohol type: beer Drug use: Never Substance use type: does not use Do you feel safe at home: Yes Do you feel safe in your relationship?: Yes Exam Narrative Exam Narrative: 1.Const: Well-nourished, Well-developed, appearing stated age 2.Eyes: PERRL, no conjunctival injection, and symmetrical lids. 3.ENT: Atraumatic external nose and ears. Moist MM. Neck: Symmetric, trachea midline, No thyromegaly. Posterior oropharynx shows no erythema or edema. No swelling. No evidence of Ludewig's angina. No hot potato voice or hoarse voice. Thyroid is nontender, not enlarged, no nodules. Bedside limited ultrasound demonstrates no fluid between the tissue planes, no signs of edema, no cobblestoning. No signs of abscess or mass. 4.CVS: +S1/S2, No murmurs or gallops. Peripheral pulses 2+ and equal in all extremities. Brisk capillary refill in all extremities. 5.RESP: Unlabored respiratory effort. Clear to auscultation bilaterally. No wheezes rales or rhonchi 6.GI: Soft, Nontender/Nondistended, No hepatosplenomegaly. No guarding or rebound. 7.MSK: Normocephalic/Atraumatic, Extremities w/o deformity or ttp No cyanosis or clubbing, Normal movement of all extremities 8.Skin: Warm, Dry. No rashes or lesions. 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 Sensation grossly intact, no focal neurologic deficits. Sensation is intact throughout the entirety of the face and lips even though he does have subjective tingling. 10.Psych: (AAO) x3. Appropriate mood and affect Course Vital Signs Vital signs: Vital Signs Temperature 36.6 C 05/02/22 20:49 Pulse 82 05/02/22 20:49 Respiratory Rate 16 05/02/22 20:49 Blood Pressure 119/82 05/02/22 20:49 Pulse Oximetry 98 05/02/22 20:49 Temperature 36.6 C 05/02/22 20:49 Temperature Source Skin 05/02/22 20:49 Pulse 82 05/02/22 20:49 Respiratory Rate 16 05/02/22 20:54 Respiratory Effort Non-Labored 05/02/22 20:54 Blood Pressure 119/82 05/02/22 20:49 Pulse Oximetry 98 05/02/22 20:49 Pain Level 0 05/02/22 20:49
[2022-05-02] MEDS: diphenhydrAMINE 25 MG CAP PO (21:22)
== END 2022-05-02 21:23 | disposition home or self-care (01) ==
PROVIDERS: Emergency Provider Student in an Organized Health Care Education/Training Program; PCP Nurse Practitioner Family
DX: F41.9 Anxiety disorder, unspecified (principal); R20.2 Paresthesia of skin; T43.225A Adverse effect of selective serotonin reuptake inhibitors, initial encounter
CPT/HCPCS: 99283; 99284

== ENCOUNTER 2022-06-22 21:52 | Emergency (ER) | payer BC, SELFPAY ==
[2022-06-22 22:02] VITALS: BP 129/82; PULSE 84; RESP 24; TEMP 36.6; O2SAT 99
--- NOTE | 2022-06-22 22:45 | RT.EKG_ITS ---
APPROVED REPORT Exam: Resting ECG Reason for Exam: chest pain Patient Location: E HR:63 bpm ECG Measurements Heart Rate 63 AXIS NV 146 P 54 QRSd 76 QRS 51 QT 415 T 36 QTc 424 Conclusion Sinus rhythm...normal P axis, V-rate 60- 99 sinus rhythm, normal axis, normal intervals, non ischemic
--- NOTE | 2022-06-22 22:52 | ED.GENADUL_ITS ---
Discharge Plan Disposition Patient Disposition: HOME Condition: Improving Discharge Details Chief Complaint: GenMedical Clinical Impression: Chest pain Primary Care Provider: Yuli Mcrae ED Provider: Gerardo Dye Home Meds and New Rx's Prescriptions: No Action atorvastatin 40 mg tablet 40 mg PO DAILY Qty: 90 4RF Rx Instructions: Take 1 tablet by mouth daily clonazepam 0.5 mg tablet 0.5 mg PO BID Qty: 30 0RF escitalopram oxalate 20 mg tablet 20 mg PO DAILY Qty: 90 3RF Rx Instructions: Take 1 tablet daily Discharge Instructions Instructions: Chest Pain (ED) Additional Instructions: Please follow-up with your primary care physician. Please return to the emergency department for any worsening symptoms. Medical Decision Making 41-year-old male history of generalized anxiety disorder, currently on escitalopram, recent witnessed to a coworker having an acute stroke, presents with anxiety as well as tingling of left fingers arm discomfort and chest discomfort; physical symptoms resolved upon arrival, no shortness of breath hemodynamically stable afebrile nontoxic normotensive heart lung sounds normal. Denies SI HI or hallucinations. Patient is calm cooperative goal oriented and appropriate. EKG normal sinus rhythm normal axis normal intervals nonischemic. Likely anxiety reaction versus musculoskeletal discomfort, low suspicion for ACS PE pneumothorax or aortic pathology. Counseled patient extensively, he has clonazepam at home and will consider taking some this evening if symptoms persist. Feels comfortable following with primary care and primary psychologist. 23: 31 patient resting comfortably no acute distress EKG nonischemic. Patient to follow-up with his primary physician and therapist. Home care instructions and return precautions given HPI General Date/Time Provider Initiated Documentation: 06/22/22 22:09 . HPI Narrative: 41-year-old male history of anxiety, presents with resolved left-sided chest discomfort and left arm paresthesia that began this evening, patient recently saw a coworker had a stroke this event has weighed on him heavily, patient also has extensive family history of cardiac disease including his father and his grandfather, he has been exercising regularly and eating a healthy diet in r esponse with this, also is seeing a therapist who started him on escitalopram he is feeling better on medications. Denies SI denies HI denies hallucinations. Physical symptoms are feeling better upon arrival Related Data Home Medications Medication Instructions Recorded Confirmed atorvastatin 40 mg tablet 40 mg PO DAILY #90 tab-caps 07/25/21 06/11/22 clonazepam 0.5 mg tablet 0.5 mg PO BID #30 tabs 04/24/22 06/11/22 escitalopram oxalate 20 mg tablet 20 mg PO DAILY #90 tabs 05/21/22 06/11/22 Previous Rx's Medication Instructions Recorded atorvastatin 40 mg tablet 40 mg PO DAILY #90 tab-caps 07/25/21 clonazepam 0.5 mg tablet 0.5 mg PO BID #30 tabs 04/24/22 escitalopram oxalate 20 mg tablet 20 mg PO DAILY #90 tabs 05/21/22 Allergies Allergy/AdvReac Type Severity Reaction Status Date / Time No Known Allergies Allergy Verified 06/03/22 13:40 General Stated Complaint: GenMedical JUAQUIN: 4 Review of Systems Narrative: Review of Systems Constitutional: negative Eyes: negative ENT: negative Cardiovascular: Chest discomfort Respiratory: negative Gastrointestinal: negative : negative Musculoskeletal: negative Skin: negative Neurologic: negative Psych: Anxiety PFSH All Active Problems (Updated 06/22/22 @ 23:32 by Gerardo Dye MD) Chest pain (Acute) Generalized anxiety disorder (Chronic) Hyperlipidemia (Chronic) Medical History 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 Paternal Grandfather No problems noted. Paternal Grandmother Myocardial infarction Heart disease Social History Smoking/Tobacco Use Status: Never Second Hand Exposure: No Smoking risk assessment performed?: Yes Alcohol Intake: current Alcohol Intake frequency: a few times a month Alcohol type: beer Drug use: Never Substance use type: does not use Do you feel safe at home: Yes Do you feel safe in your relationship?: Yes Exam Narrative Exam Narrative: Physical Examination General: alert, awake, cooperative, resting comfortably, no acute distress HEENT: normocephalic, atraumatic; PERRL, EOM intact, conjunctiva normal; no nasal discharge; moist mucous membranes, oral and pharyngeal mucosa normal, tolerating secretions Neck: supple, trachea midline; full ROM Chest: normal to inspection Respiratory: normal respiratory effort, speaking in full sentences, clear to auscultation, no wheezing, rales or rhonchi Cardiac: regular rate, regular rhythm, S1S2 intact, no murmurs rubs or gallops GI: abdomen soft, non-tender, non-distended; no palpable mass or hepatosplenomegaly Skin: no lesions, rashes or trauma appreciated Neuro: AAOx3, normal speech, moving all extremities Psych: Appropriate mood and affect Course Vital Signs Vital signs: Vital Signs Temperature 36.6 C 06/22/22 22:02 Pulse 84 06/22/22 22:02 Respiratory Rate 24 06/22/22 22:02 Blood Pressure 129/82 06/22/22 22:02 Pulse Oximetry 99 06/22/22 22:02 Temperature 36.6 C 06/22/22 22:02 Temperature Source Skin 06/22/22 22:02 Pulse 84 06/22/22 22:02 Respiratory Rate 24 06/22/22 22:02 Respiratory Effort 06/22/22 22:10 Respiratory Depth Normal 06/22/22 22:10 Respiratory Pattern Normal 06/22/22 22:10 Blood Pressure 129/82 06/22/22 22:02 Blood Pressure Position Sitting 06/22/22 22:02 Pulse Oximetry 99 06/22/22 22:02 Oxygen Delivery Method Room Air 06/22/22 22:02 Oxygen Flow Rate 0 06/22/22 22:02 Pain Level 4 06/22/22 22:02 Comment 06/22/22 22:02
== END 2022-06-22 23:37 | disposition home or self-care (01) ==
PROVIDERS: Emergency Provider Emergency Medicine; PCP Nurse Practitioner Family
DX: R07.9 Chest pain, unspecified (principal)
CPT/HCPCS: 93005; 99283; 93010

== ENCOUNTER 2022-07-30 08:58 | Outpatient (CLI) | payer BC, SELFPAY ==
--- NOTE | 2022-07-30 08:45 | RT.EKG_ITS ---
APPROVED REPORT Exam: Resting ECG Reason for Exam: CAD Patient Location: O HR:75 bpm ECG Measurements Heart Rate 75 AXIS LA 132 P 63 QRSd 81 QRS 58 QT 374 T 29 QTc 418 Conclusion Sinus rhythm...normal P axis, V-rate 50- 99 Normal Electrocardiogram
== END 2022-07-30 08:59 | disposition home or self-care (01) ==
LOC: DI.CARD 08:59
PROVIDERS: PCP Nurse Practitioner Family; Visit Provider Internal Medicine Cardiovascular Disease
DX: I25.10 Atherosclerotic heart disease of native coronary artery without angina pectoris (principal)
CPT/HCPCS: 93010

== ENCOUNTER 2022-08-17 01:23 | Outpatient (CLI) | payer BC, SELFPAY ==
--- NOTE | 2022-08-17 06:26 | ETT_ITS ---
APPROVED REPORT Exam: Exercise Treadmill Patient Location: Out-Patient Room/Bed: Stress Nurse: Gale Muir RN Ordering Provider:KAREN LINDSAY, Contact Number: [phone] BMI: 24.79 Baseline Rhythm: Sinus Rhythm Indications: Chest pain, family h/o ischemic heart disease Medical History Medical History: Chest pain, anxiety disorder, hyperlipidemia, stenosis of R carotid Cardiac Medications: Atorvastatin, clonazepam, fluoxetine Allergies: NKA Cardiac Risk Factors: Hyperlipidemia, family hx Previous Cardiac Procedures: None Pretest Chest Pain Characteristics: None Exercise History: Physically active Physical Disabilities: None Lung Sounds: Clear to auscultation Heart Sounds: Regular Stress Test Details Test: Exercise stress testing was performed using a Blu protocol. Rest Stress HR Resting HR Supine: 77 bpm Max Heart Rate (APMHR): 177 bpm Resting HR Standin bpm Target HR (85% APMHR): 150 bpm Max HR Achieved: 185 bpm % of APMHR: 104 Recovery HR: 109 bpm HR response to stress: Normal HR response to stress BP Resting BP Supine: 114/78 mmHg Resting BP Standin/80 mmHg Max BP: 146/74 mmHg Recovery BP: 116/80 mmHg BP response to stress: Normal blood pressure response to stress. ECG Resting ECG: Sinus Rhythm Ectopy: None Stress ECG: Sinus Tachycardia ST Change: No significant ST segment changes noted Arrhythmia: None Recovery ECG: Sinus Tachycardia Recovery ST Change: No significant ST segment changes noted Recovery Arrhythmia: None Clinical Reason for Termination: Fatigue Stress Symptoms: General Fatigue Exercise duration: 12 min03 sec Highest Stage Reached: Stage 5: 5.0 mph at 18% grade. Exercise capacity: 13.50 METs Bobby Treadmill Score: 11.1 Rate Pressure Product: [id number] Stress ECG Conclusion 1. The resting electrocardiogram was within normal limits 2. Patient exercised on the Blu protocol and completed a workload of 13.5 METS, stopping due to fat igue 3. Normal heart rate and blood pressure response to exercise. Patient achieved greater than 100% of predicted heart rate for age 4. There was no electrocardiographic evidence of myocardial ischemia 5. There were no significant dysrhythmias Bobby Treadmill Score is 11.1 which is Low risk. Stress Test Summary STAGE Time (mins) Speed (mph) Grade (%) HR BP SpO2 SYMPTOMS METS Supine 77 114/78 96% Standing 90 118/80 96% 1 3 1.7 10 98 120/76 94% 4.5 2 6 2.5 12 120 126/80 96% 7 3 9 3.4 14 156 134/72 96% 10 4 12 4.2 16 182 96% 13 1 min recovery 152 136/80 96% 3 min recovery 115 146/74 96% 6 min recovery 109 116/80 96%
== END 2022-08-17 01:43 ==
LOC: DI 01:24
PROVIDERS: PCP Nurse Practitioner Family; Visit Provider Internal Medicine Cardiovascular Disease
DX: I49.9 Cardiac arrhythmia, unspecified (principal)
CPT/HCPCS: 93017

== ENCOUNTER 2022-08-26 09:22 | Outpatient (REF) | payer BC, SELFPAY ==
--- NOTE | 2022-08-26 09:15 | SKI_PTH ---
PATIENT: Mert Montejo LOC: [facility] U#:[id number] AGE/SX: 41/M ROOM: RE08/26/[address]: KAYLIE Hart : 1980 BED: DIS: 08/26/2022 SPEC #: [id number] RECD: 08/26/22 12:31 STATUS: ANAND RECalixto #: [id number] YOLY: 08/26/22 09:[address]: Aishwarya Johnson DEPT: Surgical Specimen RECD BY: Alka Romero ENTERED: 08/26/22 12:32 SP TYPE: SB GRACIA DR: RJ Talley Tissues: 1 - SKIN BIOPSY(SHAVE/PUNCH) Procedures: GROSS AND MICRO LEVEL 3 Comments: [id number]
== END 2022-08-26 09:23 | disposition home or self-care (01) ==
LOC: LBN 09:22
PROVIDERS: PCP Nurse Practitioner Family; Visit Provider Physical Therapy Assistant
DX: D17.0 Benign lipomatous neoplasm of skin and subcutaneous tissue of head, face and neck (principal)
CPT/HCPCS: 88304; 88305

== ENCOUNTER 2023-11-05 01:38 | Outpatient (CLI) | payer SELFPAY ==
[2023-11-05 10:27] LABS: ALT 50 U/L (16-63); AST 26 U/L (15-37); Alkaline Phosphatase 70 U/L (46-116); Anion Gap 8.9 mmol/L (3-11); BUN 16 mg/dL (7-18); Bilirubin, Total 0.8 mg/dL (0.2-1.0); CO2 29.1 mmol/L (21.0-32.0); CREATININE 1.1 mg/dL (0.70-1.30); Calcium 9.5 mg/dL (8.5-10.1); Calculated LDL 99 mg/dL (<100); Chloride 104 mmol/L (98-107); Cholesterol 164 mg/dL (<200); Estimated GFR 84.37 (mL/min/1.73m2); Glucose 111 mg/dL (74-106); HDL Cholesterol 55 mg/dL (40-60); Potassium 4.2 mmol/L (3.5-5.1); Sodium 142 mmol/L (136-145); Total Protein 7.4 g/dL (6.4-8.2); Triglyceride 50 mg/dL (<150)
[2023-11-05 10:58] LABS: Hemoglobin A1C 5.1 % (<5.7)
== END 2023-11-05 01:39 | disposition home or self-care (01) ==
LOC: LBO 01:38
PROVIDERS: PCP Nurse Practitioner Family; Visit Provider Nurse Practitioner Family
DX: Z00.00 Encounter for general adult medical examination without abnormal findings (principal)
CPT/HCPCS: 36415; 80053; 80061; 83036

== ENCOUNTER 2024-02-03 05:13 | Outpatient (CLI) | payer BC, SELFPAY ==
[2024-02-03 11:03] LABS: Calculated LDL 97 mg/dL (<100); Cholesterol 159 mg/dL (<200); HDL Cholesterol 52 mg/dL (40-60); Triglyceride 50 mg/dL (<150)
[2024-02-03 11:23] LABS: Vitamin D 25 Total 32.6 ng/mL (30-100)
== END 2024-02-03 05:14 | disposition home or self-care (01) ==
PROVIDERS: PCP Nurse Practitioner Family; Visit Provider Nurse Practitioner Family
DX: H34.231 Retinal artery branch occlusion, right eye (principal); Z00.00 Encounter for general adult medical examination without abnormal findings
CPT/HCPCS: 36415; 80061; 82306

== ENCOUNTER 2024-03-20 09:50 | Observation (INO) | payer BC, SELFPAY ==
[2024-03-20] VITALS (58 sets, daily range): BP systolic 112–145; BP diastolic 66–93; PULSE 60–90; RESP 10–25; TEMP 36.7–36.9; O2SAT 93–98
--- NOTE | 2024-03-20 09:45 | RT.EKG_ITS ---
APPROVED REPORT Exam: Resting ECG Reason for Exam: chest pain Patient Location: E HR:77 bpm ECG Measurements Heart Rate 77 AXIS W[place] 135 P 55 QRSd 75 QRS 59 QT 387 T 49 QTc 437 Conclusion Incomplete analysis due to missing data in precordial lead(s) Sinus rhythm...normal P axis, V-rate 60- 99
--- NOTE | 2024-03-20 10:00 | RT.EKG_ITS ---
APPROVED REPORT Exam: Resting ECG Reason for Exam: chest Pain Patient Location: E HR:74 bpm ECG Measurements Heart Rate 74 AXIS AZ 136 P 39 QRSd 75 QRS 57 QT 389 T 46 QTc 433 Conclusion Sinus rhythm...normal P axis, V-rate 60- 99
[2024-03-20 11:08] LABS: Absolute Basophil Count 0.03 10^3/uL (0.0-0.2); Absolute Monocyte Count 0.49 10^3/uL (0.1-0.8); Basophils % 0.6 %; HCT 45.4 % (40.0-50.0); HGB 15.4 g/dL (13.5-17.5); Lymphocytes % 21.9 %; MCH 29.7 pg (27.0-33.0); MCHC 33.9 % (32.0-36.0); MCV 88 fL (80-95); MPV 9.7 fL (8.0-11.0); Monocytes % 9.8 %; Neutrophils % 65.7 %; Platelet Count 268 10^3/uL (130-400); RBC 5.18 10^6/uL (4.36-5.78); RDW 12.7 % (11.8-14.1); RDW-SD 41.1 fL; WBC 5.02 10^3/uL (4.4-10.8)
--- NOTE | 2024-03-20 11:24 | DI.RAD_ITS ---
Exam(s) XR CHEST 1V IN DI DEPT EXAM: XR CHEST 1V IN DI DEPT CLINICAL HISTORY: chest pain TECHNIQUE: 2D digital imaging was performed. COMPARISON: CR,XR XR PORTABLE CHEST AP from 03/15/2022 FINDINGS: LUNGS: Clear. No pleural abnormality seen. HEART: Normal size. AORTA: Normal diameter. BONES: Unremarkable for age. Soft tissues: Unremarkable. IMPRESSION: No acute findings. DATA REPOSITORY: RADIATION DOSE DELIVERED:
[2024-03-20 11:26] LABS: ALT 47 U/L (16-63); AST 31 U/L (15-37); Albumin 3.9 g/dL (3.4-5.0); Alkaline Phosphatase 75 U/L (46-116); Anion Gap 8.3 mmol/L (3-11); BUN 16 mg/dL (7-18); Bilirubin, Total 0.77 mg/dL (0.2-1.0); CO2 26.7 mmol/L (21.0-32.0); Calcium 9.2 mg/dL (8.5-10.1); Chloride 105 mmol/L (98-107); Estimated GFR 94.59 (mL/min/1.73m2); Glucose 101 mg/dL (74-106); Magnesium 2.1 mg/dL (1.8-2.4); Potassium 4.3 mmol/L (3.5-5.1); Sodium 140 mmol/L (136-145); Total Protein 7.3 g/dL (6.4-8.2); Troponin I < 50 ng/L (< or =60)
[2024-03-20] MEDS: nitroGLYcerin 0.4 MG TAB SL (11:35)
[2024-03-20] MEDS: Acetaminophen 325 MG TAB 650 MG PO (12:11)
[2024-03-20 12:36] LABS: Troponin I < 50 ng/L (< or =60)
--- NOTE | 2024-03-20 13:36 | W.ED.GENAD ---
Discharge Plan Disposition Patient Disposition: Admit to [facility] Condition: Serious Condition: Good Discharge Details Chief Complaint: Chest Pain Clinical Impression: Chest pain, Pre-syncope Admit Date/Time: 03/20/24 14:17 Admit Provider: John Tucker Attending Provider: John Tucker Primary Care Provider: Yuli Mcrae ED Provider: Danny Ramírez Discharge Instructions Activity:: Activity as Tolerated Equipment/Supplies:: No Equipment Needed Diet:: As Tolerated Discharge Orders Discharge Orders: Discharge Order (Routine); Ordered 03/21/24 Ordered By: Aura Pierson Discharge Data Discharge Date/Time-TO BE ENTERED AT DEPARTURE: 03/20/24 15:06 HPI General Mode of arrival: ambulatory. Date/Time Provider Initiated Documentation: 03/20/24 10:59. Limitations to Documentation: no limitations. Information obtained by: patient. HPI Narrative: 43yo male with history of hyperlipidemia, family history of coronary artery disease - father AK in 40s - and anxiety, here with chest pressure. Chest pain described as pressure. Started yesterday after running. He has associated near syncopal episodes. Related Data Home Medications ?Medication ?Instructions ?Recorded ?Confirmed magnesium 200 mg tablet 400 mg PO DAILY 08/20/22 03/20/24 vitamin B comp and C no.3 15 mg-10 1 cap PO DAILY 08/20/22 03/20/24 mg-50 mg-5 mg-300 mg capsule (B Complex Plus Vitamin C) clonazepam 0.5 mg tablet 0.5 mg PO BID PRN panic attack(s) 02/17/23 03/20/24 #30 tabs atorvastatin 20 mg tablet 20 mg PO DAILY #90 tabs 11/09/23 03/20/24 tadalafil 5 mg tablet (Cialis) 5 mg PO DAILY PRN sexual activity 01/18/24 03/20/24 #90 tabs Previous Rx's ?Medication ?Instructions ?Recorded clonazepam 0.5 mg tablet 0.5 mg PO BID PRN panic attack(s) 02/17/23 #30 tabs atorvastatin 20 mg tablet 20 mg PO DAILY #90 tabs 11/09/23 tadalafil 5 mg tablet (Cialis) 5 mg PO DAILY PRN sexual activity 01/18/24 #90 tabs Allergies Allergy/AdvReac Type Severity Reaction Status Date / Time No Known Allergies Allergy Verified 03/20/24 10:10 General Stated Complaint: Chest Pain JUAQUIN: 3 Review of Systems Constitutional Constitutional: Denies fever(s) Cardiovascular Cardiovascular: Reports as per HPI Exam Const General: cooperative and no acute distress HENMT Mouth: moist mucous membranes Eyes Conjunctivae: normal conjunctivae Sclera: normal sclerae Neck Neck: trachea midline Resp Auscultation: clear to auscultation bilaterally, no rales, no rhonchi and no wheezes Cardio Rate: regular rate and not tachycardic Rhythm: regular rhythm Heart Sounds: no murmurs GI Palpation: soft, not firm, no guarding, no masses, not rigid and nontender Skin General skin exam: no rashes or lesions noted Neuro General: patient alert, patient awake and tone normal Extrem General: no calf tenderness and no edema Psych Appearance: grossly normal Mental Status: mental status grossly normal Course Vital Signs Vital signs: Vital Signs Temperature 36.9 C 03/20/24 10:05 Pulse 77 03/20/24 10:05 Respiratory Rate 16 03/20/24 10:05 Blood Pressure 136/91 H 03/20/24 10:05 Pulse Oximetry 97 03/20/24 10:05 Temperature 36.9 C 03/20/24 10:05 Temperature Source Skin 03/20/24 10:05 Pulse 78 03/20/24 13:26 Respiratory Rate 17 03/20/24 13:26 Respiratory Effort Normal 03/20/24 10:46 Respiratory Depth Normal 03/20/24 10:46 Respiratory Pattern Normal 03/20/24 10:46 Blood Pressure 126/73 03/20/24 13:26 Blood Pressure Mean 90 03/20/24 13:26 Blood Pressure Position Sitting 03/20/24 10:05 Pulse Oximetry 97 03/20/24 10:05 Oxygen Delivery Method Room Air 03/20/24 10:05 Oxygen Flow Rate 0 03/20/24 10:05 Pain Level 5 03/20/24 13:26 Lab/Test Results Lab/Test Results: Laboratory Tests Range/Units 03/20/24 03/20/24 10:44 12:04 WBC (4.4-10.8) 10^3/uL 5.02 RBC (4.36-5.78) 10^6/uL 5.18 Hgb (13.5-17.5) g/dL 15.4 Hct (40.0-50.0) % 45.4 MCV (80-95) fL 88 MCH (27.0-33.0) pg 29.7 MCHC (32.0-36.0) % 33.9 RDW (11.8-14.1) % 12.7 Plt Count (130-400) 10^3/uL 268 MPV (8.0-11.0) fL 9.7 Immature Gran % % 0.0 Neutrophils % % 65.7 Lymphocytes % % 21.9 Monocytes % % 9.8 Eosinophils % % 2.0 Basophils % % 0.6 Nucleated RBC % (0.0-0.3) % 0.0 Absolute Neutrophils (1.2-6.7) 10^3/uL 3.30 Absolute Lymphocytes (1.2-3.4) 10^3/uL 1.10 L Absolute Monocytes (0.1-0.8) 10^3/uL 0.49 Absolute Eosinophils (0.0-0.7) 10^3/uL 0.10 Absolute Basophils (0.0-0.2) 10^3/uL 0.03 Sodium (136-145) mmol/L 140 Potassium (3.5-5.1) mmol/L 4.3 Chloride (98-107) mmol/L 105 Carbon Dioxide (21.0-32.0) mmol/L 26.7 Anion Gap (3-11) mmol/L 8.3 BUN (7-18) mg/dL 16 Creatinine (0.70-1.30) mg/dL 1.0 Est GFR (CKD-EPI 2020) (mL/min/1.73m2) 94.59 Glucose (74-106) mg/dL 101 Calcium (8.5-10.1) mg/dL 9.2 Magnesium (1.8-2.4) mg/dL 2.1 Total Bilirubin (0.2-1.0) mg/dL 0.77 AST (15-37) U/L 31 ALT (16-63) U/L 47 Alkaline Phosphatase (46-116) U/L 75 Troponin I (< or =60) ng/L < 50 < 50 Total Protein (6.4-8.2) g/dL 7.3 Albumin (3.4-5.0) g/dL 3.9 Medical Decision Making 43 yo male with history of hyperlipidemia, significant family history for coronary artery disease with father who had AK in his 40s, here with exercise associated chest pressure over the past couple weeks, now with chest pressure at rest today. EKG was reviewed and interpreted by me: Please report, sinus rhythm 74 bpm, no STEMI, nondiagnostic. Concern for ACS. Initial troponin negative. Delta troponin at 2 hours negative. Patient did receive nitroglycerin sublingual and had resolution of chest pressure. Chest x-ray interpreted by radiology: Heart: Normal sinus, aorta: Normal diameter. No acute findings. Plan to hospitalize for observation. Patient will need further testing including stress test. I spoke with the hospitalist on-call discussed ED presentation and course. Hospitalist will except the patient for admission. Care transition to hospitalist service Lab Data Lab results reviewed: Yes I reviewed the patient's lab results. Labs: Laboratory Tests Range/Units 03/20/24 03/20/24 10:44 12:04 WBC (4.4-10.8) 10^3/uL 5.02 RBC (4.36-5.78) 10^6/uL 5.18 Hgb (13.5-17.5) g/dL 15.4 Hct (40.0-50.0) % 45.4 MCV (80-95) fL 88 MCH (27.0-33.0) pg 29.7 MCHC (32.0-36.0) % 33.9 RDW (11.8-14.1) % 12.7 Plt Count (130-400) 10^3/uL 268 MPV (8.0-11.0) fL 9.7 Immature Gran % % 0.0 Neutrophils % % 65.7 Lymphocytes % % 21.9 Monocytes % % 9.8 Eosinophils % % 2.0 Basophils % % 0.6 Nucleated RBC % (0.0-0.3) % 0.0 Absolute Neutrophils (1.2-6.7) 10^3/uL 3.30 Absolute Lymphocytes (1.2-3.4) 10^3/uL 1.10 L Absolute Monocytes (0.1-0.8) 10^3/uL 0.49 Absolute Eosinophils (0.0-0.7) 10^3/uL 0.10 Absolute Basophils (0.0-0.2) 10^3/uL 0.03 Sodium (136-145) mmol/L 140 Potassium (3.5-5.1) mmol/L 4.3 Chloride (98-107) mmol/L 105 Carbon Dioxide (21.0-32.0) mmol/L 26.7 Anion Gap (3-11) mmol/L 8.3 BUN (7-18) mg/dL 16 Creatinine (0.70-1.30) mg/dL 1.0 Est GFR (CKD-EPI 2020) (mL/min/1.73m2) 94.59 Glucose (74-106) mg/dL 101 Calcium (8.5-10.1) mg/dL 9.2 Magnesium (1.8-2.4) mg/dL 2.1 Total Bilirubin (0.2-1.0) mg/dL 0.77 AST (15-37) U/L 31 ALT (16-63) U/L 47 Alkaline Phosphatase (46-116) U/L 75 Troponin I (< or =60) ng/L < 50 < 50 Total Protein (6.4-8.2) g/dL 7.3 Albumin (3.4-5.0) g/dL 3.9 Quality:[facility] Health Related Social Needs: No Data to Display PFSH All Active Problems (Updated 03/30/24 @ 07:26 by Danny Ramírez MD) Pre-syncope (Acute) Chest pain (Acute) Generalized anxiety disorder with panic attacks (Chronic) Peyronie's Disease (Chronic) Medical History 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 Paternal Grandfather No problems noted. Paternal Grandmother Myocardial infarction Heart disease Social History Smoking/Tobacco Use Status: Never Tobacco: How many years used: 0 Smokeless tobacco user: snuff Second Hand Exposure: Yes Smoking risk assessment performed?: Yes Alcohol Intake: never Drug use: Never Substance use type: does not use Caregiver/Support person: No Household members: significant other Housing: house Communication Needs: None Pets and animals: Yes Pets and animals: cat(s), dog(s) and farm animals Sexually active: Yes Do you think of yourself as: straight/heterosexual Current gender identity: male What is your relationship status?: living with partner How often do you talk on the phone with friends or family?: three or more times per week How often do you get together with friends or relatives?: twice per week How often do you attend jainism or quaker services?: decline to answer Do you belong to any clubs or organized social groups?: no Panel score (0-1 are the most socially isolated patients): 2 Duration: 30-45 minutes/day Frequency: 1-2 times per week Juliane/Holiness: No preference Do you feel safe at home: Yes Do you feel safe in your relationship?: Yes
[2024-03-20] MEDS: Aspirin 81 MG CHEW 324 MG CH (14:40)
--- NOTE | 2024-03-20 14:51 | W.PC.ACHO ---
Registration Status: REG ER Primary Language: Preferred Language: Hungarian ED Information & Data Chief Complaint Chest Pain 03/20/24 13:42 Triage Note Pt arrives to ED c/o CP that 03/20/24 10:05 started yesterday after running. Pt states he is still feeling chest pressure and is having near syncopal episodes. 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 (Last Reviewed 02/15/24 @ 13:09 by Myron Saenz NP) S/P myringotomy with insertion of tube S/P nasal septoplasty S/P colonoscopy (06/30/17) Most Recent Vital Signs Temperature 36.9 C 03/20/24 10:05 Temperature Source Skin 03/20/24 10:05 Pulse 67 03/20/24 13:41 Pulse 68 03/20/24 14:30 Respiratory Rate 18 03/20/24 14:30 Respiratory Effort Normal 03/20/24 10:46 Respiratory Depth Normal 03/20/24 10:46 Respiratory Pattern Normal 03/20/24 10:46 Blood Pressure 130/76 03/20/24 13:41 Blood Pressure Mean 91 03/20/24 13:41 Blood Pressure Position Sitting 03/20/24 10:05 Pulse Oximetry 97 03/20/24 14:30 Oxygen Delivery Method Room Air 03/20/24 10:05 Oxygen Flow Rate 0 03/20/24 10:05 Pain Level 5 03/20/24 13:26 Allergies No Known Allergies Allergy (Verified 03/20/24 10:10) Precautions Isolation Standard precaution 03/20/24 10:46 Active Medications Generic Name Dose Route Start Last Admin Trade Name Freq PRN Reason Stop Dose Admin Nitroglycerin 0.4 mg 03/20/24 11:20 03/20/24 11:35 Nitroglycerin 0.4 Mg Tab SL 0.4 mg Q5 MIN PRN X3 PRN Administration IV IV Catheter Type [Right Saline Lock Antecubital] IV Catheter Gauge [Right 20 Antecubital] Diagnostics 03/20/24 03/20/24 Range/Units 12:04 10:44 WBC 5.02 (4.4-10.8) 10^3/uL RBC 5.18 (4.36-5.78) 10^6/uL Hgb 15.4 (13.5-17.5) g/dL Hct 45.4 (40.0-50.0) % MCV 88 (80-95) fL MCH 29.7 (27.0-33.0) pg MCHC 33.9 (32.0-36.0) % RDW 12.7 (11.8-14.1) % Plt Count 268 (130-400) 10^3/uL MPV 9.7 (8.0-11.0) fL Immature Gran % 0.0 % Neutrophils % 65.7 % Lymphocytes % 21.9 % Monocytes % 9.8 % Eosinophils % 2.0 % Basophils % 0.6 % Nucleated RBC % 0.0 (0.0-0.3) % Absolute Neutrophils 3.30 (1.2-6.7) 10^3/uL Absolute Lymphocytes 1.10 L (1.2-3.4) 10^3/uL Absolute Monocytes 0.49 (0.1-0.8) 10^3/uL Absolute Eosinophils 0.10 (0.0-0.7) 10^3/uL Absolute Basophils 0.03 (0.0-0.2) 10^3/uL Sodium 140 (136-145) mmol/L Potassium 4.3 (3.5-5.1) mmol/L Chloride 105 (98-107) mmol/L Carbon Dioxide 26.7 (21.0-32.0) mmol/L Anion Gap 8.3 (3-11) mmol/L BUN 16 (7-18) mg/dL Creatinine 1.0 (0.70-1.30) mg/dL Est GFR (CKD-EPI 2020) 94.59 (mL/min/1.73m2) Glucose 101 (74-106) mg/dL Calcium 9.2 (8.5-10.1) mg/dL Magnesium 2.1 (1.8-2.4) mg/dL Total Bilirubin 0.77 (0.2-1.0) mg/dL AST 31 (15-37) U/L ALT 47 (16-63) U/L Alkaline Phosphatase 75 (46-116) U/L Troponin I < 50 < 50 (< or =60) ng/L Total Protein 7.3 (6.4-8.2) g/dL Albumin 3.9 (3.4-5.0) g/dL Intake and Output - 24 Hour Total 03/20/24 09:50 thru 03/20/24 10:05 Weight 76.657 kg Falls Risk Assessment History of Falls No History 03/20/24 10:46 Contributing Factors No Factors 03/20/24 10:46 Ambulatory Aids Independent 03/20/24 10:46 Tubes/Lines None 03/20/24 10:46 Gait Evaluation No gait disturbance 03/20/24 10:46 Cognition No cognitive impairment 03/20/24 10:46 Fall Total Score 0 03/20/24 10:46 Level of Risk Standard/Low Risk 03/20/24 10:46 v v v v v v v v v Sending and/or Receiving Nurses: Please use comment section below to note any information pertinent to the patient hand-off not included above. Information / Comments: Report received from: Betzaida Morfin RN
[2024-03-20 15:48] LABS: TSH (W/Ref FT4) 1.53 uIU/mL (0.36-3.74)
--- NOTE | 2024-03-20 16:11 | HPE_ITS ---
Date of service: 03/20/24 Time of Service: 16:11 Assessment and Plan Assessment and plan (1) Chest pain: Status: Acute Assessment and plan: EKG nonischemic and troponins x 2 negative thus far. Asked to admit to observation on telemetry on the medical surgical unit for further evaluation. Will cycle troponin. Echocardiogram and stress test ordered Received aspirin load in the emergency department will continue aspirin 81 mg daily Continue statin lipids from January 2024, cholesterol 159 triglycerides 58 HDL 52 LDL 97 Hemoglobin A1c October 2023 was 5.1, blood sugar 101 on arrival (2) Hyperlipidemia: Status: Chronic Assessment and plan: Was on atorvastatin 20 mg daily will increase to 40 mg daily lipids from January 2024, cholesterol 159 triglycerides 58 HDL 52 LDL 97 Qualifiers: Hyperlipidemia type: unspecified Qualified Code(s): E78.5 - Hyperlipidemia, unspecified History of Present Illness History of Present Illness Chief Complaint: chest pain Narrative: This is a 43-year-old male patient past medical history significant for hyperlipidemia generalized anxiety and panic disorder, family history of coronary artery disease with his father who had bypass in his 40s, who presented to the emergency department today after reporting shortness of breath with activity that has been ongoing for the past several weeks. He states that his pain has been occurring with exercise over the past several weeks and noted some shortness of breath and fatigue today with minimal activity. He is a runner who typically does not have the symptoms. His workup in the emergency department did show an EKG with no acute ischemic changes. Troponin and delta troponin have been negative. He did receive nitroglycerin with resolution of some discomfort he was having. Hospitalist services was asked to admit him to rule out RI. 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 Paternal Grandfather No problems noted. Paternal Grandmother Myocardial infarction Heart disease Social History Smoking/Tobacco Use Status: Never Tobacco: How many years used: 0 Smokeless tobacco user: snuff Second Hand Exposure: Yes Smoking risk assessment performed?: Yes Alcohol Intake: never Drug use: Never Substance use type: does not use Caregiver/Support person: No Household members: significant other Housing: house Communication Needs: None Pets and animals: Yes Pets and animals: cat(s), dog(s) and farm animals Sexually active: Yes Do you think of yourself as: straight/heterosexual Current gender identity: male What is your relationship status?: living with partner How often do you talk on the phone with friends or family?: three or more times per week How often do you get together with friends or relatives?: twice per week How often do you attend jainism or cheondoism services?: decline to answer Do you belong to any clubs or organized social groups?: no Panel score (0-1 are the most socially isolated patients): 2 Duration: 30-45 minutes/day Frequency: 1-2 times per week Juliane/Scientologist: No preference Do you feel safe at home: Yes Do you feel safe in your relationship?: Yes Meds Allergies and Home Medications Allergies Allergy/AdvReac Type Severity Reaction Status Date / Time No Known Allergies Allergy Verified 03/20/24 10:10 Home Medications Medication Instructions Recorded Confirmed Type magnesium 200 mg tablet 400 mg PO DAILY 08/20/22 03/20/24 History vitamin B comp and C no.3 15 mg-10 1 cap PO DAILY 08/20/22 03/20/24 History mg-50 mg-5 mg-300 mg capsule (B Complex Plus Vitamin C) clonazepam 0.5 mg tablet 0.5 mg PO BID PRN panic attack(s) 02/17/23 03/20/24 Rx #30 tabs atorvastatin 20 mg tablet 20 mg PO DAILY #90 tabs 11/09/23 03/20/24 Rx tadalafil 5 mg tablet (Cialis) 5 mg PO DAILY PRN sexual activity 01/18/24 03/20/24 Rx #90 tabs Exam Const General: cooperative, healthy appearing, comfortable and no acute distress Nutritional Appearance: average body habitus Orientation: alert, awake and oriented x3 HENMT Head: normal to inspection and normocephalic Face and sinus: normal facial exam Mouth: moist mucous membranes Eyes General: appearance normal, both eyes and all related structures Conjunctivae: normal conjunctivae Sclera: normal sclerae Neck Neck: trachea midline Resp Auscultation: clear to auscultation bilaterally, no rales, no rhonchi and no wheezes Cardio Rate: regular rate Rhythm: regular rhythm Heart Sounds: no murmurs GI Palpation: soft and nontender Skin General skin exam: no rashes or lesions noted Neuro General: patient alert, patient awake, patient oriented x3 and tone normal Extrem General: normal to inspection, full ROM, no pedal edema and no calf tenderness Psych Appearance: grossly normal Mental Status: mental status grossly normal Results Labs 03/20/24 10:44 03/20/24 10:44 Labs: Laboratory Results - last 24 hr 03/20/24 03/20/24 10:44 12:04 WBC 5.02 RBC 5.18 Hgb 15.4 Hct 45.4 MCV 88 MCH 29.7 MCHC 33.9 RDW 12.7 Plt Count 268 MPV 9.7 Immature Gran % 0.0 Neutrophils % 65.7 Lymphocytes % 21.9 Monocytes % 9.8 Eosinophils % 2.0 Basophils % 0.6 Nucleated RBC % 0.0 Absolute Neutrophils 3.30 Absolute Lymphocytes 1.10 L Absolute Monocytes 0.49 Absolute Eosinophils 0.10 Absolute Basophils 0.03 Sodium 140 Potassium 4.3 Chloride 105 Carbon Dioxide 26.7 Anion Gap 8.3 BUN 16 Creatinine 1.0 Est GFR (CKD-EPI 2020) 94.59 Glucose 101 Calcium 9.2 Magnesium 2.1 Total Bilirubin 0.77 AST 31 ALT 47 Alkaline Phosphatase 75 Troponin I < 50 < 50 Total Protein 7.3 Albumin 3.9 TSH 1.53 Last Vital Signs Temp 36.9 C 03/20/24 15:05 Pulse 74 03/20/24 15:05 Resp 20 03/20/24 15:05 BP 123/79 03/20/24 15:05 Pulse Ox 95 03/20/24 15:05 Time Spent Time spent with Patient: 40-54 minutes Time was spent: preparing to see the patient(eg.review tests), obtaining and/or reviewing separately otained hiistory, ordering medications,tests, procedures, indepentently interpreting results and counseling the patient
[2024-03-20 18:17] LABS: Troponin I < 50 ng/L (< or =60)
[2024-03-20] MEDS: Normal Saline Flush 10 ML SYR IVP (21:38)
--- NOTE | 2024-03-21 | DI.US_ITS ---
APPROVED REPORT EXAM: Comprehensive 2D, Doppler, and color-flow Echocardiogram Patient Location: In-Patient Room/Bed: [address]: Yudy Butterfield RDCS (AE) Indications: Chest pain Other Information Study Quality: Good Conclusion Normal left ventricular wall thickness and chamber size. Ejection fraction is 60%. Wall motion is n ormal Normal right ventricular size and function Both atria are normal in size There is no structural or hemodynamically significant valvular disease Wall motion Left Ventricle The left ventricle is normal size. The left ventricular systolic function is normal. The left ventric ular ejection fraction is within the normal range. There is normal left ventricular wall thickness. T here is normal LV segmental wall motion. There is no ventricular septal defect visualized. LVEF is 60 %. Right Ventricle The right ventricle is normal size. The right ventricular systolic function is normal. Atria The left atrium size is normal. The right atrium size is normal. The interatrial septum is intact wit h no evidence for an atrial septal defect. Aortic Valve The aortic valve is normal in structure. Aortic valve is probably trileaflet. There is no aortic valv ular stenosis. No aortic regurgitation is present. Mitral Valve The mitral valve is normal in structure. No evidence of mitral valve stenosis. Trace mitral regurgita tion. Tricuspid Valve The tricuspid valve is normal in structure. There is no tricuspid valve stenosis. Trace tricuspid reg urgitation. Unable to assess PA pressure. Pulmonic Valve The pulmonary valve is normal in structure. There is no pulmonic valvular stenosis. There is no pulmo kenneth valvular regurgitation. Great Vessels The aortic root is normal in size. The ascending aorta is normal in size. Aortic arch is normal in ca liber. IVC is normal in size and collapses >50% with inspiration. Pericardium There is no pericardial effusion. 2D Dimensions IVSD d PLAX 0.82 cm M: 0.6-1.2 Ao Root d 3.08 cm M: 3.1 - 3.7 LVPW d PLAX 0.85 cm M: 0.6 - 1.2 Ao Asc Diam d 2.88 cm M: 2.6 - 3.4 LVID d PLAX 4.56 cm M: 4.2 - 5.8 LVDs 2.94 cm M: 2.5 - 4.0 LV EF Teichholz 65.1 % FS 35.52 % LV EDV (Teich) 95.2 mL LV ESV (Teich) 33.3 mL M-Mode TAPSE 2.45 cm (M/F) >1.7 Auto EF LV EDV A4C 96.6 mL LV EDV A2C 98.7 mL LV EDV BP 99.8 mL LV ESV A4C 39.9 mL LV ESV A2C 39.6 mL LV ESV BP 40.7 mL LVEF(%) A4C 58.7 % LVEF(%) A2C 59.9 % LVEF(%) BP 59.2 % LV SV A4C 56.7 ml LV SV A2C 59.1 ml LV SV BP 59.1 ml LV CO A4C 3.7 L/min LV CO A2C 3.9 L/min LV CO BP 3.8 L/min HR A4C 65.46 BPM HR A2C 65.46 BPM LV EDV Index (BP) LA Volume LA Length A4C 4.1 cm LA Length A2C 4.4 cm LA Area A4C s 11.85 cm2 LA Area A2C s 13.80 cm2 LA Vol A4C A-L 28.84 mL LA Vol A2C A-L 36.96 mL LA Vol Biplane A-L 33.6 mL LA Vol/BSA A4C A-L LA Vol/BSA A2C A-L LA Vol/BSA BP A-L 18.3 mL/m2 LA Vol A4C MOD 27.6 mL LA Vol A2C MOD 34.2 mL LA Vol BP MOD 31.6 mL RA Volume RA Area A4C 9.9 cm2 RA ESV A4C (A-L) 19.5mL RA Vol/BSA A4C A-L RA Length A4C 4.3 cm RA ESV A4C (MOD) 18.0mL LV Diastology MV E' medial 0.103 (>0.07 m/s) MV E Vmax 0.89 (0.4-1.3 m/s) MV E/E' MED 8.63 (<14) MV A Vmax 0.95 (0.4-1.3 m/s) MV E' lateral 0.097 (>0.1 m/s) E/A Ratio 0.9 MV E/E' LAT 9.11 (<14) MV E' Average 0.100 m/s MV E/E'(average) 8.86 Aortic Valve AoV Vmax 1.37 m/s LVOT Vmax 1.15 m/s AoV Peak Grad 7.5 mmHg LVOT Peak Grad 5.3 mmHg AoV Area (Vmax) 2.69 cm2 LVOT VTI 0.225 m AoV VTI 0.283 m LVOT Mean Grad 2.6 mmHg AoV Mean Montrell. 0.92 m/s LVOT SV 71.71 mL AoV Mean Grad 3.9 mmHg LVOT Diam s 2.00 cm AoV Area (VTI) 2.54 cm2 Velocity Ratio 0.84 Mitral Valve MV DT 126 (160-240 msec) MV Vmax TIPS 0.87 m/s MV Mean Grad 1.4 (<2mmHg) MV VTI 0.234 m Pulmonary Valve PV Vmax 1.09 (0.5-1.5 m/s) RVOT Vmax 0.95 m/s PV Peak Grad 4.7 mmHg RVOT Peak Gr. 3.6 mmHg PV Mean Montrell 0.89 m/s RVOT VTI 0.204 m PV Mean Grad 3.3 mmHg RVOT Mean Gr. 1.9 mmHg Tricuspid Valve RA Pressure 3.00 mmHg TR Vmax 2.13 m/s TV S' 0.13 m/s TR Peak Grad 18.0 mmHg RVSP (TR) 21.1 mmHg
[2024-03-21 03:32] VITALS: BP 98/59; PULSE 60; RESP 16; TEMP 36.5; O2SAT 98
[2024-03-21 07:27] LABS: Abs Immature Grans 0.01 10^3/uL (0.0-0.06); Absolute Basophil Count 0.03 10^3/uL (0.0-0.2); Absolute Lymphocyte Count 1.73 10^3/uL (1.2-3.4); Absolute Monocyte Count 0.57 10^3/uL (0.1-0.8); Absolute Neutrophil Count 3.23 10^3/uL (1.2-6.7); Basophils % 0.5 %; Eosinophils % 3.5 %; HCT 47.8 % (40.0-50.0); HGB 16.3 g/dL (13.5-17.5); Immature Grans % 0.2 %; MCHC 34.1 % (32.0-36.0); MCV 88 fL (80-95); MPV 9.6 fL (8.0-11.0); Monocytes % 9.9 %; Neutrophils % 55.9 %; Platelet Count 277 10^3/uL (130-400); RBC 5.43 10^6/uL (4.36-5.78); RDW 12.7 % (11.8-14.1); RDW-SD 41.3 fL; WBC 5.77 10^3/uL (4.4-10.8)
[2024-03-21 07:36] VITALS: BP 121/79; PULSE 59; RESP 17; TEMP 36.4; O2SAT 98
[2024-03-21 08:07] LABS: Anion Gap 8.3 mmol/L (3-11); BUN 13 mg/dL (7-18); CO2 27.7 mmol/L (21.0-32.0); Calcium 9.5 mg/dL (8.5-10.1); Chloride 105 mmol/L (98-107); Estimated GFR 94.59 (mL/min/1.73m2); Glucose 95 mg/dL (74-106); Sodium 141 mmol/L (136-145); Troponin I < 50 ng/L (< or =60)
--- NOTE | 2024-03-21 09:30 | PDOC.CMIN ---
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 Baron Franklin) Employment Status: Employed ([employer] for [employer]) Instrumental Activities of Daily Living (ADLs): Independent Medications Medication Management: No Issues/Barriers identified Advance Directives Advance Directives: Do you have an Advance Directive: Y 04/08/22 14:48 AD On File at [facility]: Y 04/08/22 14:48 Date Asked 03/20/24 03/20/24 10:24 AD Date Reviewed 01/28/24 01/28/24 13:09 COLST On File at [facility] COLST Date Scanned Code Status Resuscitation Status Full Code Insurance Coverage/Financial Issues ACO Member: No Care Team Visit Care Team Role Provider Type Yuli Mcrae NP Primary Care Provider NURSE PRACTITIONER Danny Ramírez MD Emergency Provider [facility] STAFF PHYSICIAN John Tucker MD Admit Provider [facility] STAFF PHYSICIAN Attending Provider Discharge Potential Discharge Needs: PCP F/U Appt Anticipated Barriers to Discharge: None Identified Patient/Family Education Needs: Review discharge instructions, discuss Ask Me Three Transportation: Private vehicle Plan: Anticipate Mert will be discharged home with no new services when medically cleared. He will follow up with his PCP and plan of care and transport with family. CM will follow and continue to support discharge needs. 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 Paternal Grandfather No problems noted. Paternal Grandmother Myocardial infarction Heart disease Social History Smoking/Tobacco Use Status: Never Tobacco: How many years used: 0 Smokeless tobacco user: snuff Second Hand Exposure: Yes Smoking risk assessment performed?: Yes Alcohol Intake: never Drug use: Never Substance use type: does not use Caregiver/Support person: No Household members: significant other Housing: house Communication Needs: None Pets and animals: Yes Pets and animals: cat(s), dog(s) and farm animals Sexually active: Yes Do you think of yourself as: straight/heterosexual Current gender identity: male What is your relationship status?: living with partner How often do you talk on the phone with friends or family?: three or more times per week How often do you get together with friends or relatives?: twice per week How often do you attend jain or yazdanism services?: decline to answer Do you belong to any clubs or organized social groups?: no Panel score (0-1 are the most socially isolated patients): 2 Duration: 30-45 minutes/day Frequency: 1-2 times per week Juliane/Temple: No preference Do you feel safe at home: Yes Do you feel safe in your relationship?: Yes SDOH(Care Management) Screening Will the Patient Participate in the Screening?: Unable to obtain
[2024-03-21] MEDS: Magnesium Oxide 400 MG TAB PO (10:37)
[2024-03-21] MEDS: Aspirin E.C. 81 MG TABEC PO (10:37)
[2024-03-21] MEDS: Normal Saline Flush 10 ML SYR IVP (10:37)
--- NOTE | 2024-03-21 11:41 | DSE_ITS ---
Date of service: 03/21/24 Time of Service: 12:00 DS: Diagnosis Discharge Diagnosis (1) Chest pain: Status: Acute (2) Hyperlipidemia: Status: Chronic Discharge Plan Disposition Patient Disposition: Home Condition: Good Discharge Details Reason For Visit: Chest pain Admit Date/Time: 03/20/24 14:17 Admit Provider: John Tucker Attending Provider: John Tucker [facility] Hospital Course: This 43-year-old male patient with a history significant for hyperlipidemia, generalized anxiety, and panic disorder presented to the emergency department reporting shortness of breath with activity over the past several weeks. He described chest pain occurring with exercise recently, along with today's symptoms of shortness of breath and fatigue even with minimal activity. He is an active runner and noted these symptoms were unusual for him. Initial workup in the emergency department included an EKG showing no acute ischemic changes. Troponin and delta troponin levels were negative. He received nitroglycerin with partial relief of discomfort. Due to his symptoms and history, he was admitted for further evaluation to rule out myocardial infarction. * * EKG nonischemic and troponins negative. * Admitted to observation on telemetry on the medical-surgical unit for further evaluation. * Received aspirin load in the emergency department; will continue aspirin 81 mg daily. * Continue statin. * Lipids from January 2024: cholesterol 159, triglycerides 58, HDL 52, LDL 97. * Hemoglobin A1c October 2023: 5.1, blood sugar 101 on arrival. * Echo - Normal left ventricular wall thickness and chamber size. Ejection fraction is 60%. Wall motion is normal Normal right ventricular size and function Both atria are normal in size There is no structural or hemodynamically significant valvular disease Patient had no further chest pain. He is concerned about hypertension and is seeing his PCP regarding this. [facility] Follow up outpatient for stress test (ordered). Follow up with PCP. Home Meds and New Rx's Prescriptions: Continued clonazepam 0.5 mg tablet 0.5 mg PO BID PRN (Reason: panic attack(s)) Qty: 30 0RF magnesium 200 mg tablet 400 mg PO DAILY B Complex Plus Vitamin C 78-62-28-5-300 mg capsule 1 cap PO DAILY Rx Instructions: give with food (meal/snack) tadalafil [Cialis] 5 mg tablet 5 mg PO DAILY PRN (Reason: sexual activity) Qty: 90 0RF Rx Instructions: administer at least 30min before sexual activity; do not use more than 1 dose per 24hrs atorvastatin 20 mg tablet 20 mg PO DAILY Qty: 90 3RF Rx Instructions: Take 1 tablet by mouth daily Discharge Instructions Instructions: Controlling your blood pressure through lifestyle, Checking your blood pressure at home, DASH diet, Chest pain - Discharge instructions Stand Alone Forms: Nursing Discharge Form Referrals: Yuli Mcrae NP [Primary Care Provider] - 04/03/24 1:40 am () Activity:: Activity as Tolerated Equipment/Supplies:: No Equipment Needed Diet:: As Tolerated Discharge Orders Discharge Orders: Discharge Order (Routine); Ordered 03/21/24 Ordered By: Aura Pierson Other Ambulatory Orders: NM MPI rest & stress grp (Routine) Timeframe: 1 Week Facility: [facility] - Location: Cardiology Outpatient Ordered By: Aura Pierson Discharge Data Discharge Date/Time-TO BE ENTERED AT DEPARTURE: 03/21/24 13:23 DS: Summary Time Spent with Patient providing and/or coordinating discharge services: Less than 30 minutes Status at Discharge Functional status at discharge: independent ambulation Overall status at discharge: patient is back to baseline Mental Status: mental status grossly normal Speech and Movement: speech and movement normal Mood: congruent mood Affect: normal affect Quality:SDOH Health Related Social Needs: No Data to Display Exam Const General: cooperative, healthy appearing, comfortable and no acute distress Nutritional Appearance: average body habitus Orientation: alert, awake and oriented x3 HENMT Head: normal to inspection and normocephalic Face and sinus: normal facial exam Mouth: moist mucous membranes Eyes General: appearance normal, both eyes and all related structures Conjunctivae: normal conjunctivae Sclera: normal sclerae Neck Neck: trachea midline Resp Auscultation: clear to auscultation bilaterally, no rales, no rhonchi and no wheezes Cardio Rate: regular rate Rhythm: regular rhythm Heart Sounds: no murmurs GI Palpation: soft and nontender Skin General skin exam: no rashes or lesions noted Neuro General: patient alert, patient awake, patient oriented x3 and tone normal Extrem General: normal to inspection, full ROM, no pedal edema and no calf tenderness Psych Appearance: grossly normal Mental Status: mental status grossly normal Speech and Movement: speech and movement normal Mood: congruent mood Affect: normal affect DS: Data Vitals/I&O Vitals and I&O: Vital Signs Temperature 36.4 C L 03/21/24 07:36 Temperature Source Skin 03/21/24 07:36 Pulse 59 L 03/21/24 07:36 Pulse Rhythm Regular 03/21/24 09:45 Pulse 68 03/20/24 14:30 Respiratory Rate 17 03/21/24 07:36 Respiratory Effort Normal, Non-Labored 03/21/24 09:45 Respiratory Depth Normal 03/21/24 09:45 Respiratory Pattern Normal 03/21/24 09:45 Blood Pressure 121/79 03/21/24 07:36 Blood Pressure Mean 91 03/20/24 13:41 Blood Pressure Position Sitting 03/20/24 10:05 Pulse Oximetry 98 03/21/24 07:36 Oxygen Delivery Method Room Air 03/21/24 07:36 Oxygen Flow Rate 0 03/21/24 07:36 Pain Level 0 03/21/24 07:36 Intake & Output 03/20/24 03/20/24 03/21/24 11:59 23:59 11:59 Weight 76.657 kg 76.657 kg Other: Urine Appearance Clear Clear Comment pT stated that he voided this morning. Voiding Methods Toilet Data Completed and Pending Labs on day of discharge: Labs from last 24 hours 03/21/24 03/20/24 03/20/24 06:55 17:50 12:04 WBC 5.77 RBC 5.43 Hgb 16.3 Hct 47.8 MCV 88 MCH 30.0 MCHC 34.1 RDW 12.7 Plt Count 277 MPV 9.6 Immature Gran % 0.2 Neutrophils % 55.9 Lymphocytes % 30.0 Monocytes % 9.9 Eosinophils % 3.5 Basophils % 0.5 Nucleated RBC % 0.0 Absolute Neutrophils 3.23 Absolute Lymphocytes 1.73 Absolute Monocytes 0.57 Absolute Eosinophils 0.20 Absolute Basophils 0.03 Sodium 141 Potassium 4.0 Chloride 105 Carbon Dioxide 27.7 Anion Gap 8.3 BUN 13 Creatinine 1.0 Est GFR (CKD-EPI 2020) 94.59 Glucose 95 Calcium 9.5 Troponin I < 50 < 50 < 50 TSH 03/20/24 10:44 WBC RBC Hgb Hct MCV MCH MCHC RDW Plt Count MPV Immature Gran % Neutrophils % Lymphocytes % Monocytes % Eosinophils % Basophils % Nucleated RBC % Absolute Neutrophils Absolute Lymphocytes Absolute Monocytes Absolute Eosinophils Absolute Basophils Sodium Potassium Chloride Carbon Dioxide Anion Gap BUN Creatinine Est GFR (CKD-EPI 2020) Glucose Calcium Troponin I TSH 1.53 PFSH All Active Problems (Updated 03/20/24 @ 16:16 by Brandi Leach NP) Chest pain (Acute) Generalized anxiety disorder with panic attacks (Chronic) Hyperlipidemia (Chronic) Peyronie's Disease (Chronic) Medical History 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 Paternal Grandfather No problems noted. Paternal Grandmother Myocardial infarction Heart disease Social History Smoking/Tobacco Use Status: Never Tobacco: How many years used: 0 Smokeless tobacco user: snuff Second Hand Exposure: Yes Smoking risk assessment performed?: Yes Alcohol Intake: never Drug use: Never Substance use type: does not use Caregiver/Support person: No Household members: significant other Housing: house Communication Needs: None Pets and animals: Yes Pets and animals: cat(s), dog(s) and farm animals Sexually active: Yes Do you think of yourself as: straight/heterosexual Current gender identity: male What is your relationship status?: living with partner How often do you talk on the phone with friends or family?: three or more times per week How often do you get together with friends or relatives?: twice per week How often do you attend pentecostalism or orthodox services?: decline to answer Do you belong to any clubs or organized social groups?: no Panel score (0-1 are the most socially isolated patients): 2 Duration: 30-45 minutes/day Frequency: 1-2 times per week Juliane/Restorationism: No preference Do you feel safe at home: Yes Do you feel safe in your relationship?: Yes Time Spent with Patient Time Spent with Patient: 45-69 minutes Time was spent: preparing to see the patient(eg.review tests), ordering medications,tests, procedures, referring, communicating with other health medicare compliance auditor, indepentently interpreting results, counseling the patient and care coordination
[2024-03-21 11:59] VITALS: BP 121/85; PULSE 69; RESP 16; TEMP 36.8; O2SAT 95
--- NOTE | 2024-03-21 16:03 | PDOC.CMPRO ---
Date of service: 03/21/24 Time of Service: 16:03 Care Management Progress Note Progress Note Text Progress Note Text: Mert was admitted with chest pain yesterday. His EKG did not have any changes indicative of ACS and his troponins were negative. His symptoms resolved and he was discharged home with no new services. He will have an outpatient stress test. Discharge Potential Discharge Needs: PCP F/U Appt Anticipated Barriers to Discharge: None Identified Patient/Family Education Needs: Review discharge instructions, discuss Ask Me Three Transportation: Private vehicle SDOH(Care Management) Screening Will the Patient Participate in the Screening?: Unable to obtain
== END 2024-03-21 13:23 | disposition home or self-care (01) ==
LOC: ER 10:50 → MS 14:59
PROVIDERS: Nurse Practitioner Acute Care; Admitting Provider Internal Medicine; Emergency Provider Student in an Organized Health Care Education/Training Program; PCP Nurse Practitioner Family; Visit Provider Internal Medicine
DX: R07.89 Other chest pain (principal); E78.5 Hyperlipidemia, unspecified; F41.0 Panic disorder [episodic paroxysmal anxiety]; Z82.49 Family history of ischemic heart disease and other diseases of the circulatory system; N48.6 Induration penis plastica; Z79.899 Other long term (current) drug therapy
CPT/HCPCS: 00123; 36415; 80048; 80053; 93005; 99285; 71045; 83735; 84443; 84484; 85025; 93010; 93306; 99222; 99239; G0378

== ENCOUNTER → 2024-04-13 01:16 | Outpatient (CLI) | payer BC, SELFPAY ==
--- NOTE | 2024-04-13 07:45 | DI.NM_ITS ---
APPROVED REPORT Exam: Exercise Treadmill Patient Location: Out-Patient Room/Bed: Stress Nurse: Avis Vivar RN Ordering Provider:KELLY THORNTONRaul, Contact Number: [phone] BMI: 28.12 Baseline Rhythm: Sinus Rhythm Indications: Chest pain, Medical History Medical History: Cystic fibrosis gene carrier, branch retinal artery occllusion of R eye, chest pain, KAREN with panic attacks, HLD, peyronie's disease Cardiac Medications: Atorvastatin, clonazepam, magnesium, tadalafil, vitamin B Allergies: NKA Cardiac Risk Factors: Family hx, HLD Previous Cardiac Procedures: None Pretest Chest Pain Characteristics: None Exercise History: Physically active Physical Disabilities: None Lung Sounds: Clear to auscultation Heart Sounds: Regular Stress Test Details Test: Exercise stress testing was performed using a Blu protocol. Nuclear Acquisition: Rest Tc-99m/Stress Tc-99m 1 day Rest Isotope: Tc-99m Sestamibi. Dose: 10.0 Date: 04/13/2024 Injection Time: 1055 Stress Isotope: Tc-99m Sestamibi. Dose: 30.0 Date: 04/13/2024 Injection Time: 1255 HR Resting HR Supine: 69 bpm Max Heart Rate (APMHR): 175.788355 bpm Resting HR Standin bpm Target HR (85% APMHR): 148.033698 bpm Max HR Achieved: 160 bpm % of APMHR: 91.43 Recovery HR: 90 bpm HR response to stress: Normal HR response to stress BP Resting BP Supine: 138/88 mmHg Resting BP Standin/90 mmHg Max BP: 158/80 mmHg Recovery BP: 136/86 mmHg BP response to stress: Normal blood pressure response to stress. ECG Resting ECG: Sinus Rhythm Ectopy: None Stress ECG: Sinus Tachycardia ST Change: No significant ST segment changes noted Arrhythmia: None Comment: Significant artifiact noted Recovery ECG: Sinus Rhythm Recovery ST Change: No significant ST segment changes noted Clinical Reason for Termination: Target HR Achieved, artifact Stress Symptoms: None Exercise duration: 10 min14 sec Highest Stage Reached: Stage 3: 3.4 mph at 14% grade. Exercise capacity: 10.14 METs Angina Score: None Bobby Treadmill Score: 8.8 Rate Pressure Product: 04508 Stress ECG Conclusion 1. Resting electrocardiogram was normal 2. Patient exercised on the Blu protocol completed workload of 10.14 METS 3. Normal heart rate and blood pressure response to exercise. The patient achieved 91% of predicted heart rate for age 4. There was no electrocardiographic evidence of myocardial ischemia 5. There were no significant dysrhythmias. 6. See MPI report Bobby Treadmill Score is 8.8 which is Low risk. Stress Test Summary STAGE Time (mins) Speed (mph) Grade (%) HR BP SpO2 SYMPTOMS METS Supine 69 138/88 Standing 70 138/90 1 3 1.7 10 103 140/84 96% 4.5 2 6 2.5 12 120 148/80 95% 7 3 9 3.4 14 154 10 1 min recovery 125 158/80 3 min recovery 102 144/80 98% 6 min recovery 90 136/86 98% MPI Conclusion Myocardial perfusion is normal. There is no ischemia or evidence of prior infarction Ejection fraction is 57% with normal wall motion Radiologist Interpretation Radiologist agrees with Script Worker's Interpretation. Radiologist Interpretation by: Sandy Austin MD Interpretation Date/Time: 04/16/2024 08:57:17
== END ==
PROVIDERS: PCP Nurse Practitioner Family; Visit Provider Nurse Practitioner Family
DX: R07.9 Chest pain, unspecified (principal)
CPT/HCPCS: 78452; 93017

== ENCOUNTER 2024-04-21 08:11 | Day surgery (SDC) | payer BC, SELFPAY ==
--- NOTE | 2024-04-20 19:51 | COLE_ITS ---
Date of service: 04/21/24 Time of Service: 10:30 Colonoscopy Report Date of procedure: 04/21/24 Pre-op diagnosis general: CRC screening Post-op diagnosis procedure note: other (Normal:) Surgeon: Lynda Art Anesthesia Type: General:No Airway Pathology: none sent Complications: None Disposition: same day Prep: Miralax/Dulcolax Retraction Time: 17 Procedure Description: After informed consent was obtained, explaining risks of the procedure, in cluding but not limits to: bleeding, infections, complications of anesthesia, perforations (which may require antibiotics and /or surgery and stay in the hospital), and abdominal pain/cramping. The patient was taken to the procedure room and placed in a left decubitous position. Monitors were applied and a time out was done. The patients name, date of , procedure, allergies to medications and metal in their body was reviewed. The patient was then sedated. Once sedated and comfortable a rectal exam was done. External exam was normal. Internal exam revealed a normal sphincter tone and no palpable masses. The prostate no masses palpated today. The previously lubricated Olympus scope was then introduced (see RN notes for scope number) and retrofelexed. No internal hemorrhoids were identified. The scope was then advanced to the cecum without difficulty. The TI and appendiceal orifice were identified. The scope was then slowly retracted over 17 minutes back into the rectum. Polyps: No. Diverticula: No. The mucosa is pink and healthy w/ a normal vascular pattern. The scope was removed, and the patient was woken up and taken back to Same day surgery in stable condition. The patient tolerated the procedure well and there were no immediate complications. Follow up: The patient should follow up in 10 years, unless they develop changes in bowel habits or other new gastrointestinal complaints. [place] Bowel Prep [place] Bowel Prep Right Colon: 3 Left Colon: 3 Transverse Colon: 3 Total Score: 9
--- NOTE | 2024-04-20 19:52 | PDOC.DSDIS_ITS ---
Date of service: 04/21/24 Time of Service: 10:28 Discharge Plan Disposition Patient Disposition: Home Condition: Good Discharge Details Reason For Visit: colon scope Attending Provider: Lynda Art Primary Care Provider: Yuli Mcrae Home Meds and New Rx's Prescriptions: Continued clonazepam 0.5 mg tablet 0.5 mg PO BID PRN (Reason: panic attack(s)) Qty: 30 0RF Patient Comments: 04/21/24: pt reports he has it just in case but he hasn't used in @5 months. FS RN magnesium 200 mg tablet 400 mg PO DAILY B Complex Plus Vitamin C 90-63-43-5-300 mg capsule 1 cap PO DAILY Rx Instructions: give with food (meal/snack) tadalafil [Cialis] 5 mg tablet 5 mg PO DAILY PRN (Reason: sexual activity) Qty: 90 0RF Rx Instructions: administer at least 30min before sexual activity; do not use more than 1 dose per 24hrs polyethylene glycol 3350 17 gram/dose powder 17 g PO ONCE Qty: 238 0RF Rx Instructions: Take per colonoscopy instructions provided by ordering providers office atorvastatin 20 mg tablet 20 mg PO DAILY Qty: 90 3RF Rx Instructions: Take 1 tablet by mouth daily Discontinued bisacodyl [Dulcolax (bisacodyl)] 5 mg tablet,delayed release (DR/EC) 5 mg PO ONCE Qty: 4 0RF Rx Instructions: Take per colonoscopy instructions provided by ordering providers office Discharge Instructions Additional Instructions: DSU Colonoscopy Post- Op Instructions Instructions for Everyone who is given Anesthesia: For your safety, please do the following for the next twenty-four (24) hours: *Do Not operate a motor vehicle (car, truck, motorcycle, etc.) *Do Not drink alcoholic beverages or use any recreational drugs for the first 24 hours or while taking pain medications. The medications in your body may have a reaction that can be dangerous. *Do Not make any important decisions or sign any important papers. Findings: normal Follow up: repeat in 10 yrs time 1. No lifting over 20 pounds or strenuous activity for the first 24 hours after your procedure. After 24 hours there are no restrictions on your activity but you may feel fatigued for a few days. 2. After you arrive home you may have a light meal and return to your normal diet as you can tolerate it without feeling sick to your stomach. 3. You may have a bloated, gaseous feeling in your belly (abdomen) after a colonoscopy. Passing gas and belching will help. Walking or lying down on your left side with your knees flexed may relieve the discomfort. Call the office at [phone] (Office) or [phone] (Hospital) right away if you notice any of the following: a.Vomiting of blood or ?coffee ground stools?. b.Rectal bleeding 1Tbsp, blood clots or continuous bleeding. c.Severe belly (abdominal) pain. d.A hard distended belly (abdomen) and an inability to pass gas. 4. Please don?t expect to have a normal BM (bowel movement) for 2-3 days after your procedure. 5. If there are questions regarding the findings of your procedure, please contact your doctor 6. If you are unable to contact your doctor with a problem, contact the hospital at [phone]. 7. Continue all your regular medications unless directed otherwise. I understand the above instructions and have no questions. Signature of Patient or Adult Escort Name of Responsible Adult Escort Signature of Nurse Date/Time Stand Alone Forms: Anesthesia Discharge Inst., Press Ganey (DSU) Activity:: see above Diet:: see above Discharge Orders Discharge Orders: Discharge Order (Routine); Ordered 04/21/24 Ordered By: Lynda Art DS: Diagnosis Discharge Diagnosis (1) Generalized anxiety disorder with panic attacks: Status: Chronic (2) Hyperlipidemia: Status: Acute (3) Peyronie's Disease: Status: Chronic (4) Screening for malignant neoplasm of colon performed: Status: Acute Asessment and Plan: The patient is seen and examined after their colonoscopy.? The patient has been able to pass gas.? They are not having abdominal pain.? They have been able to tolerate liquids and a snack.? They do not have any nausea or vomiting.? They are not having any chest pain or shortness of breath.??? They are not having any rectal bleeding. Their vital signs have been stable-see nursing notes. We discussed findings during their colonoscopy, and any biopsies that were done/polyps that were removed. The patient will be sent a letter with any biopsy results, and when to repeat the colonoscopy.-see discharge instructions. Patient was given explicit instructions to follow-up regarding colonoscopy-refer to discharge instructions.? We reviewed resumption of medications. Patient verbalized understanding and discharged in stable and satisfactory condition- See nursing notes.
[2024-04-21 08:29] VITALS: BP 123/89; PULSE 84; RESP 20; TEMP 36.2; O2SAT 98
[2024-04-21] MEDS: Lactated Ringers 1,000 ML 80 ML IV (08:49)
--- NOTE | 2024-04-21 09:06 | W.ANESPRE ---
General Info Date of Service Date Performed: 04/21/24 Height: 5 ft 5 in Weight: 74.1 kg Body Mass Index (BMI): 27.1 Surgical Procedure: Operation Date: 04/21/24 09:05 Proposed Procedure Side Surgeon davida Art, DO Meds Allergies and Home Medications Allergies Allergy/AdvReac Type Severity Reaction Status Date / Time No Known Allergies Allergy Verified 04/21/24 08:35 Home Medication ?Medication ?Instructions ?Recorded magnesium 200 mg tablet 400 mg PO DAILY 08/20/22 vitamin B comp and C no.3 15 mg-10 1 cap PO DAILY 08/20/22 mg-50 mg-5 mg-300 mg capsule (B Complex Plus Vitamin C) clonazepam 0.5 mg tablet 0.5 mg PO BID PRN panic attack(s) 02/17/23 #30 tabs atorvastatin 20 mg tablet 20 mg PO DAILY #90 tabs 11/09/23 tadalafil 5 mg tablet (Cialis) 5 mg PO DAILY PRN sexual activity 01/18/24 #90 tabs polyethylene glycol 3350 17 17 g PO ONCE #238 grams 04/06/24 gram/dose oral powder Current Visit Medications: Current Medications Generic Name Dose Route Start Last Admin Trade Name Freq PRN Reason Stop Dose Admin Hyoscyamine Sulfate 0.125 mg 04/21/24 06:00 Hyoscyamine 0.125 Mg Sl/Oral/Chew SL 04/21/24 16:00 DIRECTED PRN Ringer's Solution 1,000 mls @ 80 mls/hr 04/21/24 06:00 04/21/24 08:49 IV 05/20/24 23:59 80 mls/hr INFUSION ALDO Administration IV Miscellaneous Supplies 1 each 04/21/24 06:00 Iv Access IV 05/20/24 23:59 DIRECTED ALDO Ondansetron HCl 4 mg 04/21/24 06:00 Ondansetron 4 Mg/2 Ml Vial IVP 04/21/24 16:00 Q4H PRN PRN Nausea / Vomiting Sodium Chloride 0 ml 04/21/24 06:00 Normal Saline Flush 10 Ml Syr IV 05/20/24 23:59 PRN PRN Sodium Chloride 0 ml 04/21/24 06:00 Normal Saline 10 Ml Vial IJ 05/20/24 23:59 DIRECTED PRN Sterile Water 0 ml 04/21/24 06:00 Water,Injection,Sterile 10 Ml Vial IJ 05/20/24 23:59 DIRECTED PRN PFSH Active Problems Active Problems: Problem Status Onset Code Screening for malignant neoplasm of colon performed Acute Z12.11 Peyronie's Disease Chronic N48.6 Generalized anxiety disorder with panic attacks 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, F41.0 Hyperlipidemia Acute E78.5 Medical History Medical History Tachycardia Chest pain 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 Surgical History Surgical History S/P myringotomy with insertion of tube S/P nasal septoplasty S/P colonoscopy (06/30/17) Tobacco Smoking/Tobacco Use Status: Never Smokeless tobacco user: snuff Passive smoking exposure: No Second hand exposure: Yes Alcohol Alcohol Intake: never Substance Use Substance use: Never Substance use type: does not use Vital Signs and Lab Results Vital Signs Most Recent Vital Signs in EMR: Most Recent Vital Signs Temp Pulse Resp BP Pulse Ox 36.2 C L 84 20 123/89 98 04/21/24 08:29 04/21/24 08:29 04/21/24 08:29 04/21/24 08:29 04/21/24 08:29 Lab Results Blood Type / Crossmatch: No Data to Display Complete Blood Count: No Data to Display Complete Metabolic Panel: No Data to Display Liver Function Panel: No Data to Display Coagulation Panel: No Data to Display Cardiac Panel: No Data to Display Arterial Blood Gas: No Data to Display Venous Blood Gas: No Data to Display Pancreas Panel: No Data to Display Thyroid Panel: No Data to Display Infectious Disease: No Data to Display Blood Cultures: No Data to Display Toxicology Panel: No Data to Display Anesthesia Assessment and Plan Anesthesia History Personal History: No History of Anesthesia Complications Family History: No Family History of Anesthesia Complications Exercise Tolerance Exercise Tolerance: Metabolic Equivalents>4 Pertinent Negatives Pertinent Negatives: No Symptoms of GERD Cardiac & Pulmonary Exam Cardiac Exam: Normal S1/S2 Heart Sounds Pulmonary Exam: Clear Bilateral Breath Sounds Implantable Cardiac Device Does patient have a Pacemaker or an ICD?: No Airway Exam Known Difficult Airway: No Mallampati Class: 2 Mouth Opening: Normal (> 3cm) Thyromental Distance: Greater than 3 cm Neck Range of Motion: Full ROM Neck Circumference: Normal Teeth Condition: Normal Dentition ASA Classification ASA Score: ASA 2 Emergency Case?: No NPO Status NPO Status: NPO Clears >2 hours, Solids >8 hours Anesthesia Plan Resuscitation Status: Full Code Anesthesia Technique: General Anesthesia Airway Planned: Natural Airway Monitors Used: Standard Monitors
[2024-04-21 09:08] VITALS: BMI 27.1
[2024-04-21 10:07] VITALS: BP 98/70; PULSE 94; RESP 16; TEMP 36.2; O2SAT 96
--- NOTE | 2024-04-21 10:10 | W.ANESPOSTOP ---
Postoperative Evaluation Date, Time and Location Date Performed: 04/21/24 Time Performed: 10:10 Patient Location: Day Surgery Unit Vital Signs Most Recent Imported Vital Signs: Most Recent Vital Signs Temp Pulse Resp BP Pulse Ox 36.2 C L 94 H 16 98/70 L 96 04/21/24 10:07 04/21/24 10:07 04/21/24 10:04/21/24 10:04/21/24 10:07 Pain Score Most Recent Pain Score: Most Recent Pain Score Pain Level 0 04/21/24 08:29 Assessment Mental Status: Awake (Alert & Oriented to Patient Baseline) Airway and Respiratory Function: Patent airway with normal (patient baseline) respiratory exam Cardiovascular Function: Hemodynamically Stable Hydration Status: Adequately Hydrated Nausea & Vomiting: No Nausea or Vomiting Pain: Pt. Denies Any Pain Peripheral Nerve Block: Patient did not receive a nerve block
[2024-04-21 10:37] VITALS: BP 110/83; PULSE 67; RESP 16; TEMP 36.2; O2SAT 98
== END 2024-04-21 10:53 | disposition home or self-care (01) ==
LOC: SUR 08:11
PROVIDERS: PCP Nurse Practitioner Family; Visit Provider Surgery
PROC: 0DJD8ZZ Inspection of Lower Intestinal Tract, Via Natural or Artificial Opening Endoscopic (ICD-10-PCS; CPT 45378; principal; 2024-04-21 09:00)
DX: Z12.11 Encounter for screening for malignant neoplasm of colon
CPT/HCPCS: 45378; J2001; J2704

== ENCOUNTER 2024-06-29 12:42 | Outpatient (REF) | payer BC, SELFPAY ==
[2024-06-29 21:02] LABS: Absolute Basophil Count 0.03 10^3/uL (0.0-0.2); Absolute Eosinophil Count 0.14 10^3/uL (0.0-0.7); Absolute Monocyte Count 0.52 10^3/uL (0.1-0.8); Basophils % 0.6 %; Eosinophils % 2.6 %; HCT 48.8 % (40.0-50.0); HGB 16.4 g/dL (13.5-17.5); MCH 29.6 pg (27.0-33.0); MCHC 33.6 % (32.0-36.0); MCV 88 fL (80-95); MPV 9.3 fL (8.0-11.0); Monocytes % 9.6 %; Neutrophils % 61.2 %; Platelet Count 297 10^3/uL (130-400); RBC 5.54 10^6/uL (4.36-5.78); RDW 12.2 % (11.8-14.1); WBC 5.39 10^3/uL (4.4-10.8)
[2024-06-29 21:17] LABS: ALT 48 U/L (16-63); AST 27 U/L (15-37); Albumin 4.1 g/dL (3.4-5.0); Alkaline Phosphatase 91 U/L (46-116); Anion Gap 8.5 mmol/L (3-11); BUN 18 mg/dL (7-18); Bilirubin, Total 0.79 mg/dL (0.2-1.0); CO2 30.5 mmol/L (21.0-32.0); CREATININE 1.1 mg/dL (0.70-1.30); Calcium 9.5 mg/dL (8.5-10.1); Chloride 104 mmol/L (98-107); Estimated GFR 84.37 (mL/min/1.73m2); Glucose 101 mg/dL (74-106); Potassium 4.9 mmol/L (3.5-5.1); Sodium 143 mmol/L (136-145); Total Protein 7.4 g/dL (6.4-8.2)
== END 2024-06-29 12:43 | disposition home or self-care (01) ==
LOC: LBN 12:42
PROVIDERS: PCP Nurse Practitioner Family; Visit Provider Nurse Practitioner Family
DX: R60.0 Localized edema (principal); R22.41 Localized swelling, mass and lump, right lower limb; R52 Pain, unspecified
CPT/HCPCS: 80053; 85025

== ENCOUNTER 2024-08-02 01:33 | Outpatient (CLI) | payer BC, SELFPAY ==
--- NOTE | 2024-08-02 15:30 | DI.MRI_ITS ---
Exam(s) MR LOWER JOINT RT WO EXAM: MR LOWER JOINT RT WO CLINICAL HISTORY: evaluate pathology,EDEMA RT LOWER EXT,R60.0,?INCREASED FLUID TIBIALIS POST TECHNIQUE: Multiplanar multisequence MRI was performed without intravenous contrast. COMPARISON: Exam interpreted without benefit comparison plain films. FINDINGS: Exam is mildly limited by motion. BONES/JOINTS: No fracture or contusion pattern. No bone lesions identified. The talar dome is smooth. The ankle mortise is maintained. No joint effusion is present. LIGAMENTS: Suboptimally visualized. The tibiofibular and calcaneofibular ligaments are intact. The t alofibular ligaments are intact. The deltoid ligament is intact. The syndesmosis is unremarkable. Si nus tarsi is normal. MUSCULOTENDINOUS STRUCTURES: Achilles tendon: Unremarkable. Plantar fascia: Unremarkable. Anterior Extensor tendons: Unremarkable. Posterior Tibialis: Normal signal. No thickening or tear. Minimal amount of surrounding fluid which may be within normal limits. Flexor Digitorum longus: Unremarkable. Flexor Hallucis longus: Unremarkable. Peroneus longus: Unremarkable. Peroneus brevis:Unremarkable. SOFT TISSUES: Unremarkable. IMPRESSION: Minimal amount of fluid around the posterior tibialis may represent mild synovitis versus within norm al limits. DATA REPOSITORY:
== END 2024-08-02 01:53 ==
LOC: DI 01:33
PROVIDERS: PCP Nurse Practitioner Family; Visit Provider Nurse Practitioner Family
DX: R60.0 Localized edema (principal)
CPT/HCPCS: 73721